=== PATIENT | male | born 1945 | race Caucasian/White ===

== ENCOUNTER 2020-06-13 13:51 | Outpatient (REF) | payer OTHER, SELFPAY ==
--- NOTE | 2020-06-13 13:53 | XR_ITS ---
EXAMINATION: BILATERAL KNEE X-RAY CLINICAL INFORMATION: Osteoarthritis of the left knee COMPARISON: Previous exams most recent February 2020 TECHNIQUE: AP standing view of both knees and lateral and sunrise view of the left knee FINDINGS: Left knee: No fracture or dislocation is seen. There is varus angulation. There is a severe arthritis at the medial femoral tibial and patellofemoral joints with joint space narrowing and osteophyte formation. There is an osteophyte at the quadriceps tendon insertion to the patella. There is a large joint effusion. Standing AP view of the right knee demonstrates a right knee replacement in satisfactory position. IMPRESSION: Severe left knee arthritis. Satisfactory appearance of right knee replacement.
== END 2020-06-13 13:52 | disposition home or self-care (01) ==
LOC: HO.XRAY 13:51
PROVIDERS: PCP Internal Medicine; Visit Provider Physician Assistant
DX: Z01.818 Encounter for other preprocedural examination (principal); M17.12 Unilateral primary osteoarthritis, left knee
CPT/HCPCS: 73560; 73565

== ENCOUNTER 2020-06-13 14:49 | Outpatient (REF) | payer OTHER, SELFPAY | END 2020-06-13 14:50 | disposition home or self-care (01) | LOC: HO.LAB 14:49 | PROVIDERS: PCP Internal Medicine; Visit Provider Orthopaedic Surgery | DX: Z01.810 Encounter for preprocedural cardiovascular examination (principal); M17.12 Unilateral primary osteoarthritis, left knee | CPT/HCPCS: 86850 ==

== ENCOUNTER 2020-06-17 15:03 | Inpatient (IN) | payer OTHER, SELFPAY ==
[2020-05-28 14:22] VITALS: BMI 34.2
--- NOTE | 2020-06-12 15:46 | P.CONAN_ITS ---
Documented by User: Anne Marie Tuckerney 06/12/20 15:51 HPI - Anesthesia Eval Consult details Narrative: 75yo M for L TKA S/P R TKA 10/2019 PCP cleared [facility] Past Medical History Medical History Anemia Arthritis Back pain Diabetes Elevated cholesterol HTN (hypertension) Sleep apnea Family History Family History Father Lung cancer Mother No problems noted. Surgical History Surgical History H/O colonoscopy History of dental surgery History of total right knee replacement Social History Social History Are you a primary ostomy care nurse to a significant other at home: No Do you presently have visiting nurse or other home services: No Smoking Status: Never smoker Second Hand Smoke Exposure: No Use of substances other than those prescribed or required for medical reasons: N Have you been hit, kicked, punched, or otherwise hurt by someone within the past year? If so, by whom?: No Advance Directives: No Advance Directives Information Provided: No Advance Directives on File: No Recently lost weight without trying: No Meds Allergies Allergy/AdvReac Type Severity Reaction Status Date / Time morphine [MORPHINE] Allergy Severe DROP IN Verified 06/13/20 14:02 BLOOD PRESSURE, ALMOST FAINTED Home Medications Medication Instructions Recorded Confirmed Type acetaminophen 650 mg PO Q6H PRN 05/28/20 06/09/20 History finasteride 5 mg PO DAILY 05/28/20 06/09/20 History losartan 100 mg PO DAILY 05/28/20 06/09/20 History metformin 1,000 mg PO BEDTIME 05/28/20 06/09/20 History metformin 500 mg PO DAILY 05/28/20 06/09/20 History rosuvastatin 20 mg PO BEDTIME 05/28/20 06/09/20 History tamsulosin 0.4 mg PO BEDTIME 05/28/20 06/09/20 History Exam Exam Date and Time: June 12, 2020 1546 Height,Weight and Vital Signs: Height 5 ft 11 in Weight 111.4 kg Pertinent Lab Results Pertinent Lab Results: Laboratory Tests 05/26/20 05/26/20 05/26/20 10:15 10:15 10:15 WBC 8.1 Hgb 14.8 Hct 43.7 Plt Count 315 Sodium 138 Potassium 5.0 Chloride 103 Bicarbonate 26 BUN 25 H Creatinine 1.08 Est GFR (Non-Af Amer) > 60 Hemoglobin A1c 6.5 Nasal Screen MRSA (PCR) Nasal S. aureus Screen Nasal MRSA/S.aureus Interp 05/26/20 10:24 WBC Hgb Hct Plt Count Sodium Potassium Chloride Bicarbonate BUN Creatinine Est GFR (Non-Af Amer) Hemoglobin A1c Nasal Screen MRSA (PCR) NEGATIVE Nasal S. aureus Screen NEGATIVE Nasal MRSA/S.aureus Interp SEE NOTE Assessment and Plan Assessment Anesthesia Assessment: Chart Reviewed Documented by User: Gurwinder Beach 06/17/20 07:16 [facility] Past Medical History Medical History Anemia Arthritis Back pain Diabetes Elevated cholesterol HTN (hypertension) Sleep apnea Family History Family History Father Lung cancer Mother No problems noted. Surgical History Surgical History H/O colonoscopy History of dental surgery History of total right knee replacement Social History Social History Are you a primary ostomy care nurse to a significant other at home: No Do you presently have visiting nurse or other home services: No Smoking Status: Never smoker Second Hand Smoke Exposure: No Use of substances other than those prescribed or required for medical reasons: N Have you been hit, kicked, punched, or otherwise hurt by someone within the past year? If so, by whom?: No Advance Directives: No Advance Directives Information Provided: No Advance Directives on File: No Recently lost weight without trying: No Meds Allergies Allergy/AdvReac Type Severity Reaction Status Date / Time morphine [MORPHINE] Allergy Severe DROP IN Verified 06/13/20 14:02 BLOOD PRESSURE, ALMOST FAINTED Home Medications Medication Instructions Recorded Confirmed Type acetaminophen 650 mg PO Q6H PRN 05/28/20 06/09/20 History finasteride 5 mg PO DAILY 05/28/20 06/09/20 History losartan 100 mg PO DAILY 05/28/20 06/09/20 History metformin 1,000 mg PO BEDTIME 05/28/20 06/09/20 History metformin 500 mg PO DAILY 05/28/20 06/09/20 History rosuvastatin 20 mg PO BEDTIME 05/28/20 06/09/20 History tamsulosin 0.4 mg PO BEDTIME 05/28/20 06/09/20 History Exam Airway Mallampati Class: II TM Dist: >3cm Neck ROM: Poor Loose/Missing/Broken Teeth: Yes Heart: RRR Other: chipped tooth
[2020-06-17] VITALS (18 sets, daily range): BP systolic 117–139; BP diastolic 61–73; PULSE 59–84; RESP 16–19; TEMP 36.1–36.5; O2SAT 95–98
--- NOTE | 2020-06-17 | XR_ITS ---
EXAMINATION: XR KNEE, LEFT CLINICAL INFORMATION: Left total knee arthroplasty COMPARISON: Radiographs left knee 06/13/2020 TECHNIQUE: AP and lateral views of the left knee. FINDINGS: Patient is status post total left knee arthroplasty. The hardware is in anatomic alignment and intact. There is no fracture or destructive process. There is gas in the suprapatellar bursa as expected along with overlying skin ambrose. IMPRESSION: Status post left total knee arthroplasty.
[2020-06-17] MEDS: Lactated Ringers 1,000 ML 100 ML IVCONT (06:37)
[2020-06-17] MEDS: ceFAZolin Sodium/Dextrose,Iso 2 GM/50 ML PIGGYBACK IV ×2 (06:38→19:31)
[2020-06-17] MEDS: Gabapentin 600 MG TABLET PO (06:40)
[2020-06-17 06:44] LABS: Glucose, Whole Blood 143 mg/dL (60-115)
[2020-06-17 06:49] LABS: SARS COV2 PCR INHOUSE NEGATIVE (Negative)
--- NOTE | 2020-06-17 07:13 | PC.NURSE ---
yosef block at 0718 vss [id number] pt tolerated well oxygen applied ls clear nad left side
--- NOTE | 2020-06-17 07:28 | MHC.SHP ---
Pre-Procedural Eval Section A The patient is an INPATIENT: No Changes since office visit: No Cold of Flu in the past 2 weeks, No New Medical Problems, No Changes in Medication and No Patient answered all questions The History & Physical has been completed within 30 days and I have reviewed it.: Yes Section B Chief Complaint: osteoarthritis left knee Allergies: Allergies Allergy/AdvReac Type Severity Reaction Status Date / Time morphine [MORPHINE] Allergy Severe DROP IN Verified 06/13/20 14:02 BLOOD PRESSURE, ALMOST FAINTED Plan Patient has been examined and remains a candidate for the planned procedure
[2020-06-17] MEDS: HYDROmorphone HCl 0.5 MG/0.5 ML SYRINGE 0.25 MG IVPUSH ×2 (10:16→10:26)
--- NOTE | 2020-06-17 10:34 | PM.OP ---
Brief Operative Note Date of procedure: 06/17/20 Pre-op diagnosis: Left knee OA Post-op diagnosis: same Procedure: Left TKA Implants: Tad triathlon 02/09/PS/35 a Surgeon: Zach Cabezas MD Anesthesia: GETA [employer] Section: Michell Martines Estimated blood loss (mL): 100 IV fluids (mL): 1,000 Pathology: other Condition: stable Disposition: PACU
--- NOTE | 2020-06-17 10:59 | OP_ITS ---
SURGEON: Zach Cabezas MD INDICATIONS: This is a 75-year-old gentleman with severe varus pattern osteoarthritis of the left knee. He had a perioperative 15-degree flexion contracture and was consented to undergo operative intervention. PREOPERATIVE DIAGNOSIS: Left knee osteoarthritis. POSTOPERATIVE DIAGNOSIS: Left knee osteoarthritis. PROCEDURE PERFORMED: Left total knee arthroplasty. ESTIMATED BLOOD LOSS: 100 mL. COMPLICATIONS: None known. ANESTHESIA: General. ASSISTANTS: ROB Gore. SPECIMENS: FLUIDS: 1 L. IMPLANTS: Tad Triathlon 6 femur, 7 tibia, 9 PS insert with a 35A patella. PROCEDURE IN DETAIL: The patient was brought to the operating room, placed supine on the operative table and prepped and draped in standard sterile fashion. Time-out was called to identify proper site, proper procedure, proper surgeon. IV antibiotics per weight was administered. I began by making a midline incision down to the retinaculum, performed a medial parapatellar arthrotomy. Fat pad resection and medial peel were performed and the patella was translated laterally. It was very tight knee. I used Johanna's line to drill my intramedullary femoral guide and took 12 mm off the distal femur given his severe flexion contracture. I then made my distal femur cut in 5 degrees of valgus and then sized a size 6 femur, made my anterior, posterior, and chamfer cuts. I then made my box cut and turned my attention to the tibia. I took 2 mm off the medial side in line with the tibial crest. This was a large lateral resection, but a minimal medial resection. Once I had removed all the excess debris, I placed extension block and still had approximately 5 to 10 degree flexion contracture. Therefore, I removed all instrumentation and took a distal 2 mm off the femur and recut my chamfer and box cut. I then re-trialed and it was less than 5 degrees and felt that was sufficient. Therefore, I drilled my femoral lug holes and prepared my tibial canal. Prior to this, I trialed with a 9 mm insert and I was happy with the extension and stability. Therefore, I removed all instrumentation, prepared my femur and tibia and press-fitting the femur and tibia in standard fashion. I then turned my attention to the patella. I removed approximately 10 mm from the undersurface of the patella. I then patella and was happy with the tracking. All in all, he had flexion contracture and was stable throughout the arc of motion. I then press-fit my patella in and put my final 9 mm polyethylene insert. Once this was done, I soaked for 3 minutes with iodine and TXA. I then performed a layered closure with ambrose on the skin. The patient was brought to recovery room in stable condition. There were no known complications. MD PAULA Quintana/SEBASTIÁN / [phone]
--- NOTE | 2020-06-17 11:26 | P.CONIM_ITS ---
History of Present Illness Data of Consult Service Date: 06/17/20 <Nicole Davison NP - Last Filed: 06/17/20 14:33> Requesting physician: Zach Cabezas <Nicole Davison NP - Last Filed: 06/17/20 14:33> Primary Care Provider: Marva Jurado MD <Nicole Davison NP - Last Filed: 06/17/20 14:33> HPI Reason for consult: Medical management <Nicole Davison NP - Last Filed: 06/17/20 14:33> 75 year old man with hx of HTN, HLD, and diabetes admitted by orthopedic surgery and is status post left knee arthroplasty. He denies nausea or vomiting. He has been able to drink fluids no problem. Labs are within normal limits, he has minimum amount of pain. He has no acute medical problems at this time. <Nicole Davison NP - Last Filed: 06/17/20 14:33> Review of Systems Review of Systems: Denies any recent fever chills or decrease in appetite respiratory denies any shortness of breath coverage production cardiovascular is adjustment of any PND or edema gastrointestinal denies any dysphagia abdominal pain nausea vomiting or diarrhea genitourinary denies any dysuria frequency or hematuria musculoskeletal post op left knee pain neuropsych denies any weakness or seizures all other systems reviewed are negative <Nicole Davison NP - Last Filed: 06/17/20 14:33> [facility] Medical History: Medical History Anemia Arthritis Back pain Diabetes Elevated cholesterol HTN (hypertension) Sleep apnea <Nicole Davison NP - Last Filed: 06/17/20 14:33> Family History: Family History Father Lung cancer Mother No problems noted. <Nicole Davison NP - Last Filed: 06/17/20 14:33> Surgical History: Surgical History H/O colonoscopy History of dental surgery History of total right knee replacement <Nicole Davison NP - Last Filed: 06/17/20 14:33> Social History: Social History Are you a primary customer care coordinator to a significant other at home: No Do you presently have visiting nurse or other home services: No Smoking Status: Never smoker Second Hand Smoke Exposure: No Use of substances other than those prescribed or required for medical reasons: N Currently Displaying Signs/Symptoms of Drug Intoxication Withdrawal: No Have you been hit, kicked, punched, or otherwise hurt by someone within the past year? If so, by whom?: No Advance Directives: No Advance Directives Information Provided: No Advance Directives on File: No Do you have thoughts of harming others: None Do you have a plan to hurt others: No Plan Recently lost weight without trying: No service: Yes Current occupational status: retired <Nicole Davison NP - Last Filed: 06/17/20 14:33> Meds Allergies/Adverse reactions: Allergies Allergy/AdvReac Type Severity Reaction Status Date / Time morphine [MORPHINE] AdvReac Severe DROP IN Verified 06/17/20 08:09 BLOOD PRESSURE, ALMOST FAINTED <Nicole Davison NP - Last Filed: 06/17/20 14:33> Home medications: Home Medications Medication Instructions Recorded Confirmed Type acetaminophen 650 mg PO Q6H PRN 05/28/20 06/09/20 History finasteride 5 mg PO DAILY 05/28/20 06/09/20 History losartan 100 mg PO DAILY 05/28/20 06/09/20 History metformin 1,000 mg PO BEDTIME 05/28/20 06/09/20 History metformin 500 mg PO DAILY 05/28/20 06/09/20 History rosuvastatin 20 mg PO BEDTIME 05/28/20 06/09/20 History tamsulosin 0.4 mg PO BEDTIME 05/28/20 06/09/20 History <Nicole Davison NP - Last Filed: 06/17/20 14:33> Physical Exam Vital Signs and Narrative: Vital Signs: Last Vital Signs Temp 97.4 F 06/17/20 11:20 Pulse 82 06/17/20 11:20 Resp 16 06/17/20 11:20 BP 122/68 06/17/20 11:05 Pulse Ox 96 06/17/20 11:20 Body Mass Index 34.2 <Nicole Davison NP - Last Filed: 06/17/20 14:33> Appearing in no acute distress head is normocephalic atraumatic eyes pupils are PERRLA sclera is anicteric mouth throat mucous membranes are intact and moist neck is supple no lymphadenopathy, no JVD noted lung sounds are clear to auscultation heart regular rate rhythm, clear S1, S2 positive bowel sounds, abdomen is soft, nontender neuro patient is alert x3, no focal deficits MSK Dry, clean dressing to left knee <Nicole Davison NP - Last Filed: 06/17/20 14:33> Results Labs Labs: Laboratory Tests 06/13/20 06/17/20 06/17/20 15:17 05:35 06:40 POC Glucose 143 H Coronavirus (PCR) NEGATIVE Blood Type B Negative Antibody Screen NEGATIVE <Nicole Davison NP - Last Filed: 06/17/20 14:33> Assessment and Plan (1) HTN (hypertension): Status: Acute <Nicole Davison NP - Last Filed: 06/17/20 14:33> (2) Elevated cholesterol: Status: Acute <Nicole Davison NP - Last Filed: 06/17/20 14:33> (3) Diabetes: Status: Acute <Nicole Davison NP - Last Filed: 06/17/20 14:33> 75 year old man status post left knee arthroplasty Left knee arthorplasty. Management as per surgical team, pain management Hypertension. Continue Losartan. Avoid hypotension. Diabetes. Sliding scale, ADA diet, Hold metformin for now. Hyperlipidemia. Continue statin. DVT prophylaxis as per surgeon. Discussed with Dr. Gustafson Full code <Nicole Davison NP - Last Filed: 06/17/20 14:33>
[2020-06-17 16:38] LABS: Glucose, Whole Blood 292 mg/dL (60-115)
[2020-06-17] MEDS: Acetaminophen 325 MG TABLET 650 MG PO (18:30)
[2020-06-17] MEDS: oxyCODONE HCl Immed Release 5 MG TABLET PO (19:32)
[2020-06-17] MEDS: Celecoxib 200 MG CAPSULE PO (20:56)
[2020-06-17] MEDS: Atorvastatin Calcium 80 MG TABLET PO (20:56)
[2020-06-17] MEDS: Tamsulosin HCL 0.4 MG CAPSULE PO (20:56)
[2020-06-17] MEDS: oxyCODONE HCl ER 10 MG TAB.ER.12H PO (20:59)
[2020-06-17 21:20] LABS: Glucose, Whole Blood 189 mg/dL (60-115)
[2020-06-17] MEDS: Insulin Lispro 100 UNIT/ML 3 ML VIAL SUBCUT (21:28)
[2020-06-17] MEDS: Sodium Chloride 0.45 % 1,000 ML 80 ML IVCONT (22:52)
[2020-06-18] VITALS (8 sets, daily range): BP systolic 112–144; BP diastolic 54–68; PULSE 56–93; RESP 18–19; TEMP 35.5–36.3; O2SAT 95–99
[2020-06-18 07:00] LABS: MANUAL DIFF FLAG NO
[2020-06-18 07:10] LABS: Basophils Percent Auto 0.1 % (0-2); Eosinophils Percent Auto 0.2 % (0-4); Hematocrit 34.3 % (42-52); Hemoglobin 11.5 g/dl (14.0-18.0); Imm Gran Abs Auto 0.04 X10*3/uL (0.00-0.03); Imm Gran Pct Auto 0.3 % (0.0-0.4); Lymphocytes Absolute Auto 1.4 X10*3/uL (1.2-4.9); Lymphocytes Percent Auto 11.4 % (20-40); Mean Corpuscular HGB Conc 33.5 g/dl (31.0-36.0); Mean Corpuscular Volume 86.4 fL (80-98); Monocytes Absolute Auto 1.4 X10*3/uL (0.1-1.2); Neutrophils Absolute Auto 9.5 X10*3/uL (2.0-8.3); Platelet Count 273 X10*3/uL (160-400); Red Blood Count 3.97 X10*6/uL (4.60-5.80); Red Cell Distribution Width 11.8 % (11.0-16.0); White Blood Count 12.3 X10*3/uL (4.8-10.8)
[2020-06-18] MEDS: Acetaminophen 325 MG TABLET 650 MG PO (07:18)
[2020-06-18 07:34] LABS: Anion Gap 12 (12-20); Blood Urea Nitrogen 33 mg/dL (9-16); Calcium 8.2 mg/dL (8.4-10.2); Carbon Dioxide 25 mmol/L (22-29); Chloride 103 mmol/L (96-108); Estimated Glomerular Filt Rate > 60; Glucose Fasting 154 mg/dL (60-99); Potassium 4.2 mmol/l (3.3-5.1); Sodium 136 mmol/L (135-145)
[2020-06-18 08:06] LABS: Glucose, Whole Blood 162 mg/dL (60-115)
[2020-06-18] MEDS: Aspirin 325 MG TABLET PO ×2 (08:23→20:52)
[2020-06-18] MEDS: Finasteride 5 MG TABLET PO (08:24)
[2020-06-18] MEDS: Celecoxib 200 MG CAPSULE PO ×2 (08:24→20:52)
[2020-06-18] MEDS: Losartan Potassium 50 MG TABLET 100 MG PO (08:24)
[2020-06-18] MEDS: oxyCODONE HCl ER 10 MG TAB.ER.12H PO ×2 (08:26→20:53)
[2020-06-18] MEDS: Sodium Chloride 0.45 % 1,000 ML 80 ML IVCONT ×2 (09:46→20:53)
--- NOTE | 2020-06-18 10:57 | P.PNIM_ITS ---
Subjective Subjective Date of Service: 06/18/20 Interval History: Seen in f/u for medical consult for med management for HTN, HLD, DM. Had left knee total arthroplasty 06/17/20. Doing well. Pain is reasonable well controlled. Tolerating ambulation. Review of Systems Card: no chest pain GI: No n/v Muscular/sk: minimal knee pain Physical Exam Vital Signs: Vital Signs: Vital Signs Temp Pulse Resp BP Pulse Ox 06/18/20 09:11 78 120/66 06/18/20 08:00 96.9 F 78 18 120/66 06/18/20 04:00 96.8 F 69 19 138/68 95 06/17/20 23:55 97.7 F 75 19 139/69 96 06/17/20 20:00 97.6 F 77 16 118/66 97 06/17/20 14:20 97 06/17/20 13:57 18 97 06/17/20 11:20 97.4 F 82 16 96 06/17/20 11:05 70 16 122/68 95 Appearing in no acute distress head is normocephalic atraumatic eyes pupils are PERRLA sclera is anicteric mouth throat mucous membranes are intact and moist neck is supple no lymphadenopathy, no JVD noted lung sounds are clear to auscultation heart regular rate rhythm, clear S1, S2 positive bowel sounds, abdomen is soft, nontender neuro patient is alert x3, no focal deficits MSK Dry, clean dressing to left knee Objective Data Current Medications Generic Name Dose Route Start Last Admin Trade Name Freq PRN Reason Stop Dose Admin Acetaminophen 650 mg 06/17/20 10:06 06/18/20 07:18 Acetaminophen 325 Mg Tablet PO 650 mg Q6H PRN Administration Pain, Mild (Pain Scale 1-3) Aspirin 325 mg 06/18/20 10:00 06/18/20 08:23 Aspirin 325 Mg Tablet PO 325 mg BID MARTA Administration Atorvastatin Calcium 80 mg 06/17/20 21:00 06/17/20 20:56 Atorvastatin Calcium 80 Mg Tablet PO 80 mg BEDTIME MARTA Administration Celecoxib 200 mg 06/17/20 21:00 06/18/20 08:24 Celecoxib 200 Mg Capsule PO 200 mg BID MARTA Administration Finasteride 5 mg 06/18/20 09:00 06/18/20 08:24 Finasteride 5 Mg Tablet PO 5 mg DAILY MARTA Administration Hydromorphone HCl 0.25 mg 06/17/20 10:06 Hydromorphone Hcl 0.5 Mg/0.5 Ml Syringe IVPUSH Q4H PRN Pain, Severe (Pain Scale 7-10) Sodium Chloride 1,000 mls @ 80 mls/hr 06/17/20 10:15 06/18/20 09:46 IVCONT 80 mls/hr .[id number] MARTA Administration Cefazolin Sodium/Dextrose 2 gm in 50 mls @ 100 mls/hr 06/17/20 19:00 06/17/20 20:16 Ancef IV Infused POSTOP MARTA Infusion Insulin Human Lispro 0 unit 06/17/20 16:30 06/18/20 08:24 Insulin Lispro 100 Unit/Ml 3 Ml Vial SUBCUT Not Given QIDACHS [facility] Protocol Losartan Potassium 100 mg 06/18/20 09:00 06/18/20 08:24 Losartan Potassium 50 Mg Tablet PO 100 mg DAILY MARTA Administration Naloxone HCl 0.2 mg 06/17/20 10:06 Naloxone Hcl 0.4 Mg/Ml Vial IVPUSH Q2M PRN Excessive sedation or RR < 8 Ondansetron HCl 4 mg 06/17/20 10:06 Ondansetron Hcl 4 Mg/2 Ml Vial IVPUSH Q8H PRN Nausea and Vomiting Oxycodone HCl 5 mg 06/17/20 10:06 06/17/20 19:32 Oxycodone Hcl Immed Release 5 Mg Tablet PO 5 mg Q4H PRN Administration Pain, Moderate (Pain Scale 4-6 Oxycodone HCl 10 mg 06/17/20 21:00 06/18/20 08:26 Oxycodone Hcl Er 10 Mg Tab.Er.12h PO 10 mg BID MARTA Administration Senna 17.2 mg 06/17/20 10:06 Sennosides 8.6 Mg Tablet PO BEDTIME PRN Constipation Sodium Chloride 3 ml 06/17/20 16:00 06/18/20 07:18 0.9 % Sodium Chloride Flush 3 Ml Syringe IVFLUSH Not Given QSHIFT [facility] Tamsulosin HCl 0.4 mg 06/17/20 21:00 06/17/20 20:56 Tamsulosin Hcl 0.4 Mg Capsule PO 0.4 mg BEDTIME MARTA Administration Labs CBC & Chem 7: 06/18/20 06:39 10/14/20 06:39 Assessment and Plan (1) HTN (hypertension): Status: Acute (2) Elevated cholesterol: Status: Acute (3) Diabetes: Status: Acute Assessment and Plan: 75 year old man with HTN, HLD, DM status post left knee arthroplasty on 06/17/20 Left knee arthroplasty. Doing -Post op management by surgery including pain, DVT prophylaxis, PT Hypertension. controlled -Continue Losartan. Avoid hypotension. Diabetes. Sliding scale, ADA diet. Ok to resume metformin Hyperlipidemia. Continue statin. DVT prophylaxis as per surgeon.
[2020-06-18 11:56] LABS: Glucose, Whole Blood 139 mg/dL (60-115)
--- NOTE | 2020-06-18 13:52 | HO.POSTANES ---
Post Anesthesia Evaluation Post Anesthesia Evaluation Vital Signs: Vital Signs Temp Pulse Resp BP Pulse Ox 06/18/20 13:17 59 112/54 L 99 06/18/20 11:43 95.9 F L 59 18 112/54 L 99 06/18/20 09:11 78 120/66 06/18/20 08:00 96.9 F 78 18 120/66 06/18/20 04:00 96.8 F 69 19 138/68 95 Anesthesia: General Mental Status: Awake Pain Control: Satisfactory Nausea/Vomiting: None Hydration: Adequate Anesthesia-Related Issues: No Anes. Related Issues
--- NOTE | 2020-06-18 14:00 | MHC.CM.PN ---
nurse foster care case manager note electronic medical record reviewed along with case discussed with staff nurse , met with patient explained the role of the nurse foster care case manager in the transition from hospitla to home , patient reported he lives with his from previous surgeries he haS :WHEELED WALKER, CAne , shower grab bars and high toilet seat.) HE IS INDEPENDENT IN HIS ADLS AND MOBILITY AND AT TIMES USES THE CANE OR WALKER WHEN NEEDED. HE PLAN ON GOING HOME / WITH HOME PHYSICAL THEAPRY AFTER REVIEW OF THE AGENCY LIST HE CHOOSE THE [facility] FOR HOME PHYSICAL THEPAY AND THEN WHEN THEY HAVE DISCHARGED HIM HE WOULD LIKE TO CGO TO THE [facility]SP[facility]ATION [facility] FOR HOME PHYSICAL THEAP[facility] OUTPATIENT FOLLOW UP PCP AND [facility] MAKE APPOINTMENTS TRANSPORTATION FAMILY MEDICARE IM XPLAINED
[2020-06-18] MEDS: oxyCODONE HCl Immed Release 5 MG TABLET PO (16:35)
[2020-06-18 16:40] LABS: Glucose, Whole Blood 130 mg/dL (60-115)
[2020-06-18] MEDS: Atorvastatin Calcium 80 MG TABLET PO (20:52)
[2020-06-18] MEDS: Tamsulosin HCL 0.4 MG CAPSULE PO (20:53)
[2020-06-18 20:59] LABS: Glucose, Whole Blood 144 mg/dL (60-115)
--- NOTE | 2020-06-18 20:59 | P.PNOP_ITS ---
Subjective Subjective Interval history: POD 1 s/p LT TKA He states he did well over night, pain is improving with Oxycodone. He has been out of bed ambulating without difficulty. Physical Exam Vital Signs: Vital Signs: Vital Signs Temp Pulse Resp BP Pulse Ox 06/18/20 19:29 97.3 F 93 121/58 L 97 06/18/20 15:21 96.5 F L 66 18 119/59 L 99 06/18/20 13:17 59 112/54 L 99 06/18/20 11:43 95.9 F L 59 18 112/54 L 99 06/18/20 09:11 78 120/66 06/18/20 08:00 96.9 F 78 18 120/66 06/18/20 04:00 96.8 F 69 19 138/68 95 06/17/20 23:55 97.7 F 75 19 139/69 96 Body Mass Index 34.2 Const: General: cooperative, healthy appearing and no acute distress Resp: Effort & Inspection: normal respiratory effort and able to speak in complete sentences Cardio: Rate: regular rate Peripheral pulses: Peripheral pulses 2+ throughout GI: Inspection: Yes normal to inspection Palpation (GI): Soft to palpation Skin: General skin exam: no rashes or lesions noted Extrem: Other: Left knee dressing intact, no drainage. No erythema, mild edema, ROM 5-95. Calf supple non tender Progress Note: A&P Assessment and plan (1) Status post left knee replacement: Status: Acute Assessment and Plan: Cont pain mgmnt begin PT for LT TKA begin asa for dvt ppx dispo planning-Pt eval and pain mgmnt Fall Risk Details Current Medications: Current Medications Generic Name Dose Route Start Last Admin Trade Name Freq PRN Reason Stop Dose Admin Acetaminophen 650 mg 06/17/20 10:06 06/18/20 07:18 Acetaminophen 325 Mg Tablet PO 650 mg Q6H PRN Administration Pain, Mild (Pain Scale 1-3) Aspirin 325 mg 06/18/20 10:00 06/18/20 20:52 Aspirin 325 Mg Tablet PO 325 mg BID MARTA Administration Atorvastatin Calcium 80 mg 06/17/20 21:00 06/18/20 20:52 Atorvastatin Calcium 80 Mg Tablet PO 80 mg BEDTIME MARTA Administration Celecoxib 200 mg 06/17/20 21:00 06/18/20 20:52 Celecoxib 200 Mg Capsule PO 200 mg BID MARTA Administration Finasteride 5 mg 06/18/20 09:00 06/18/20 08:24 Finasteride 5 Mg Tablet PO 5 mg DAILY MARTA Administration Hydromorphone HCl 0.25 mg 06/17/20 10:06 Hydromorphone Hcl 0.5 Mg/0.5 Ml Syringe IVPUSH Q4H PRN Pain, Severe (Pain Scale 7-10) Sodium Chloride 1,000 mls @ 80 mls/hr 06/17/20 10:15 06/18/20 20:53 IVCONT 80 mls/hr .[id number] MARTA Administration Cefazolin Sodium/Dextrose 2 gm in 50 mls @ 100 mls/hr 06/17/20 19:00 06/17/20 20:16 Ancef IV Infused POSTOP MARTA Infusion Insulin Human Lispro 0 unit 06/17/20 16:30 06/18/20 20:55 Insulin Lispro 100 Unit/Ml 3 Ml Vial SUBCUT Not Given QIDACHS [facility] Protocol Losartan Potassium 100 mg 06/18/20 09:00 06/18/20 08:24 Losartan Potassium 50 Mg Tablet PO 100 mg DAILY [facility] Administration Naloxone HCl 0.2 mg 06/17/20 10:06 Naloxone Hcl 0.4 Mg/Ml Vial IVPUSH Q2M PRN Excessive sedation or RR < 8 Ondansetron HCl 4 mg 06/17/20 10:06 Ondansetron Hcl 4 Mg/2 Ml Vial IVPUSH Q8H PRN Nausea and Vomiting Oxycodone HCl 5 mg 06/17/20 10:06 06/18/20 16:35 Oxycodone Hcl Immed Release 5 Mg Tablet PO 5 mg Q4H PRN Administration Pain, Moderate (Pain Scale 4-6 Oxycodone HCl 10 mg 06/17/20 21:00 06/18/20 20:53 Oxycodone Hcl Er 10 Mg Tab.Er.12h PO 10 mg BID [facility] Administration Senna 17.2 mg 06/17/20 10:06 Sennosides 8.6 Mg Tablet PO BEDTIME PRN Constipation Sodium Chloride 3 ml 06/17/20 16:00 06/18/20 16:32 0.9 % Sodium Chloride Flush 3 Ml Syringe IVFLUSH Not Given QSHIFT [facility] Tamsulosin HCl 0.4 mg 06/17/20 21:00 06/18/20 20:53 Tamsulosin Hcl 0.4 Mg Capsule PO 0.4 mg BEDTIME MARTA Administration Time Spent With Patient Time: Total time spent is greater than 50% in coordination of care (as documented) at patient's floor/unit and/or counseling patient: Time with patient: 15 - 24 minutes
[2020-06-19 03:42] VITALS: BP 150/67; PULSE 74; RESP 18; TEMP 36.2; O2SAT 94
[2020-06-19] MEDS: oxyCODONE HCl Immed Release 5 MG TABLET PO ×2 (06:03→10:50)
[2020-06-19 06:33] LABS: MANUAL DIFF FLAG NO
[2020-06-19 06:53] LABS: Basophils Percent Auto 0.4 % (0-2); Eosinophils Absolute Auto 0.2 X10*3/uL (0.0-0.4); Eosinophils Percent Auto 1.9 % (0-4); Hematocrit 29.7 % (42-52); Hemoglobin 10.1 g/dl (14.0-18.0); Imm Gran Abs Auto 0.03 X10*3/uL (0.00-0.03); Imm Gran Pct Auto 0.3 % (0.0-0.4); Lymphocytes Absolute Auto 1.5 X10*3/uL (1.2-4.9); Lymphocytes Percent Auto 16.3 % (20-40); Mean Corpuscular Hemoglobin 29.4 pg (27.0-33.0); Mean Corpuscular Volume 86.3 fL (80-98); Mean Platelet Volume 9.3 fL (9.4-12.4); Monocytes Absolute Auto 1.2 X10*3/uL (0.1-1.2); Monocytes Percent Auto 12.6 % (2-11); Neutrophils Absolute Auto 6.3 X10*3/uL (2.0-8.3); Neutrophils Percent Auto 68.5 % (45-73); Platelet Count 227 X10*3/uL (160-400); Red Blood Count 3.44 X10*6/uL (4.60-5.80); Red Cell Distribution Width 11.9 % (11.0-16.0); White Blood Count 9.1 X10*3/uL (4.8-10.8)
[2020-06-19 07:05] LABS: Anion Gap 11 (12-20); Blood Urea Nitrogen 33 mg/dL (9-16); Calcium 8.1 mg/dL (8.4-10.2); Carbon Dioxide 25 mmol/L (22-29); Chloride 104 mmol/L (96-108); Estimated Glomerular Filt Rate > 60; Glucose Fasting 123 mg/dL (60-99); Potassium 4.1 mmol/l (3.3-5.1); Sodium 136 mmol/L (135-145)
[2020-06-19 07:42] VITALS: BP 139/64; PULSE 84; RESP 17; TEMP 36.2; O2SAT 96
[2020-06-19 07:49] LABS: Glucose, Whole Blood 153 mg/dL (60-115)
[2020-06-19 08:48] VITALS: BP 139/64; PULSE 84; O2SAT 96
--- NOTE | 2020-06-19 08:54 | P.PNIM_ITS ---
Subjective Subjective Date of Service: 06/19/20 Interval History: Seen in f/u for medical consult for med management for HTN, HLD, DM. Had left knee total arthroplasty 06/17/20. Doing well. He has a bit more pain today. Doing well with ambulation Review of Systems Knee pain, no other complaint Physical Exam Vital Signs: Vital Signs: Vital Signs Temp Pulse Resp BP Pulse Ox 06/19/20 08:48 84 139/64 96 06/19/20 07:42 97.2 F 84 17 139/64 96 06/19/20 03:42 97.2 F 74 18 150/67 H 94 06/18/20 23:52 97 F 56 18 144/57 H 95 06/18/20 19:29 97.3 F 93 121/58 L 97 06/18/20 15:21 96.5 F L 66 18 119/59 L 99 06/18/20 13:17 59 112/54 L 99 06/18/20 11:43 95.9 F L 59 18 112/54 L 99 06/18/20 09:11 78 120/66 Body Mass Index 34.2 Appearing in no acute distress head is normocephalic atraumatic eyes pupils are PERRLA sclera is anicteric mouth throat mucous membranes are intact and moist neck is supple no lymphadenopathy, no JVD noted lung sounds are clear to auscultation heart regular rate rhythm, clear S1, S2 positive bowel sounds, abdomen is soft, nontender neuro patient is alert x3, no focal deficits MSK Dry, clean dressing to left knee Objective Data Current Medications Generic Name Dose Route Start Last Admin Trade Name Roxana PRN Reason Stop Dose Admin Acetaminophen 650 mg 06/17/20 10:06 06/18/20 07:18 Acetaminophen 325 Mg Tablet PO 650 mg Q6H PRN Administration Pain, Mild (Pain Scale 1-3) Aspirin 325 mg 06/18/20 10:00 06/18/20 20:52 Aspirin 325 Mg Tablet PO 325 mg BID MARTA Administration Atorvastatin Calcium 80 mg 06/17/20 21:00 06/18/20 20:52 Atorvastatin Calcium 80 Mg Tablet PO 80 mg BEDTIME MARTA Administration Celecoxib 200 mg 06/17/20 21:00 06/18/20 20:52 Celecoxib 200 Mg Capsule PO 200 mg BID MARTA Administration Finasteride 5 mg 06/18/20 09:00 06/18/20 08:24 Finasteride 5 Mg Tablet PO 5 mg DAILY MARTA Administration Hydromorphone HCl 0.25 mg 06/17/20 10:06 Hydromorphone Hcl 0.5 Mg/0.5 Ml Syringe IVPUSH Q4H PRN Pain, Severe (Pain Scale 7-10) Sodium Chloride 1,000 mls @ 80 mls/hr 06/17/20 10:15 06/18/20 20:53 IVCONT 80 mls/hr .[id number] MARTA Administration Cefazolin Sodium/Dextrose 2 gm in 50 mls @ 100 mls/hr 06/17/20 19:00 06/17/20 20:16 Ancef IV Infused POSTOP MARTA Infusion Insulin Human Lispro 0 unit 06/17/20 16:30 06/18/20 20:55 Insulin Lispro 100 Unit/Ml 3 Ml Vial SUBCUT Not Given QIDACHS [facility] Protocol Losartan Potassium 100 mg 06/18/20 09:00 06/18/20 08:24 Losartan Potassium 50 Mg Tablet PO 100 mg DAILY [facility] Administration Naloxone HCl 0.2 mg 06/17/20 10:06 Naloxone Hcl 0.4 Mg/Ml Vial IVPUSH Q2M PRN Excessive sedation or RR < 8 Ondansetron HCl 4 mg 06/17/20 10:06 Ondansetron Hcl 4 Mg/2 Ml Vial IVPUSH Q8H PRN Nausea and Vomiting Oxycodone HCl 5 mg 06/17/20 10:06 06/19/20 06:03 Oxycodone Hcl Immed Release 5 Mg Tablet PO 5 mg Q4H PRN Administration Pain, Moderate (Pain Scale 4-6 Oxycodone HCl 10 mg 06/17/20 21:00 06/18/20 20:53 Oxycodone Hcl Er 10 Mg Tab.Er.12h PO 10 mg BID [facility] Administration Senna 17.2 mg 06/17/20 10:06 Sennosides 8.6 Mg Tablet PO BEDTIME PRN Constipation Sodium Chloride 3 ml 06/17/20 16:00 06/19/20 00:24 0.9 % Sodium Chloride Flush 3 Ml Syringe IVFLUSH Not Given QSHIFT [facility] Tamsulosin HCl 0.4 mg 06/17/20 21:00 06/18/20 20:53 Tamsulosin Hcl 0.4 Mg Capsule PO 0.4 mg BEDTIME MARTA Administration Labs CBC & Chem 7: 06/19/20 06:07 06/19/20 06:07 Assessment and Plan (1) HTN (hypertension): Status: Acute (2) Elevated cholesterol: Status: Acute (3) Diabetes: Status: Acute Assessment and Plan: 75 year old man with HTN, HLD, DM status post left knee arthroplasty on 06/17/20 Left knee arthroplasty. Doing -Post op management by surgery including pain, DVT prophylaxis, PT Hypertension. controlled -Continue Losartan. Diabetes. Sliding scale, ADA diet. Ok to resume metformin Hyperlipidemia. Continue statin. DVT prophylaxis as per surgeon. Medically ok to discharge and to resume home meds
[2020-06-19] MEDS: Aspirin 325 MG TABLET PO (09:02)
[2020-06-19] MEDS: Finasteride 5 MG TABLET PO (09:02)
[2020-06-19] MEDS: Celecoxib 200 MG CAPSULE PO (09:03)
[2020-06-19] MEDS: Losartan Potassium 50 MG TABLET 100 MG PO (09:03)
[2020-06-19] MEDS: Insulin Lispro 100 UNIT/ML 3 ML VIAL SUBCUT (09:06)
--- NOTE | 2020-06-19 09:27 | PM.DS ---
DS: Providers Provider Date of admission: 06/17/20 15:03 Primary care physician: Marva Jurado MD Consults: 06/17/20 10:06 Consult to Hospitalist Routine Consulting Provider: Hospitalist Reason for consultation: Medical management DS: Diagnosis Discharge Diagnosis (1) HTN (hypertension): Status: Acute (2) Elevated cholesterol: Status: Acute (3) Diabetes: Status: Acute (4) Status post left knee replacement: Status: Acute Problem details: Mr Tran is a 75-year-old gentleman who presented to our office with ongoing left knee pain. He was found to have osteoarthritis of the left knee. He continued to have difficulty with ambulation and daily activities and after failing all conservative measures he agreed to have surgical intervention, left TKA. DS: Summary Hospital Course Hospital Course: Mr Tran Underwent a successful left total knee arthroplasty. He was transferred to PACU and then to the floor her covered. During his stay his vitals were stable afebrile 97.2. H&H unremarkable hemoglobin 10.1 and hematocrit 29.7. Postop day 1 he was started on aspirin 325 mg for DVT prophylaxis and he received physical therapy services twice a day. Prior to discharge his Aquacel dressing was changed incision clean dry and intact new Aquacel dressing applied and the plan is to be discharged home with VNA services. Time spent discussing smoking cessation with patient: more than 10 minutes Status at Discharge Functional status at discharge: uses cane/walker Time Spent with Patient Time attestation: Total time spent providing and/or coordinating discharge services: Physical Exam Vital Signs: Vital Signs: Vital Signs Temp Pulse Resp BP Pulse Ox 06/19/20 08:48 84 139/64 96 06/19/20 07:42 97.2 F 84 17 139/64 96 06/19/20 03:42 97.2 F 74 18 150/67 H 94 06/18/20 23:52 97 F 56 18 144/57 H 95 06/18/20 19:29 97.3 F 93 121/58 L 97 06/18/20 15:21 96.5 F L 66 18 119/59 L 99 06/18/20 13:17 59 112/54 L 99 06/18/20 11:43 95.9 F L 59 18 112/54 L 99 Body Mass Index 34.2 Extrem: Other: Left knee incision clean dry and intact. [place] intact. No erythema. Mild edema. Calf supple nontender. Pulses present. DS: Data Data Completed and Pending Completed studies during hospitalization [Text1]: Pending at discharge 06/17/20 09:38 Surgical [PTH] Routine Labs on day of discharge: Labs from last 24 hours 06/19/20 06/19/20 06/19/20 07:42 06:07 06:07 WBC 9.1 RBC 3.44 L Hgb 10.1 L Hct 29.7 L MCV 86.3 MCH 29.4 MCHC 34.0 RDW 11.9 Plt Count 227 MPV 9.3 L Immature Gran % (Auto) 0.3 Neut % (Auto) 68.5 Lymph % (Auto) 16.3 L [place] % (Auto) 12.6 H Eos % (Auto) 1.9 Baso % (Auto) 0.4 Lymph # (Auto) 1.5 [place] # (Auto) 1.2 Eos # (Auto) 0.2 Baso # (Auto) 0.0 Abs Immat Gran (auto) 0.03 Absolute Neuts (auto) 6.3 Absolute Nucleated RBC 0.000 Nucleated RBC % (auto) 0.0 Sodium 136 Potassium 4.1 Chloride 104 Carbon Dioxide 25 Anion Gap 11 L BUN 33 H Creatinine 0.92 Estim Creat Clear Calc 88.0 Estimated GFR > 60 POC Glucose 153 H Fasting Glucose 123 H Calcium 8.1 L 06/18/20 06/18/20 06/18/20 20:55 16:37 11:42 WBC RBC Hgb Hct MCV MCH MCHC RDW Plt Count MPV Immature Gran % (Auto) Neut % (Auto) Lymph % (Auto) [place] % (Auto) Eos % (Auto) Baso % (Auto) Lymph # (Auto) [place] # (Auto) Eos # (Auto) Baso # (Auto) Abs Immat Gran (auto) Absolute Neuts (auto) Absolute Nucleated RBC Nucleated RBC % (auto) Sodium Potassium Chloride Carbon Dioxide Anion Gap BUN Creatinine Estim Creat Clear Calc Estimated GFR POC Glucose 144 H 130 H 139 H Fasting Glucose Calcium Discharge Plan Discharge Patient Disposition: Home Health Service Referrals: Michell Martines PA-C [Physician Assistant Printer Floor Covering] - (Follow up with Orthopedics in 2 weeks. ) Discharge Medications: New celecoxib 200 mg Capsule 200 mg PO BID 30 Days Qty: 60 RF: 1 sennosides [Senna Lax] 8.6 mg Tablet 17.2 mg PO BEDTIME PRN (Reason: Constipation) 30 Days RF: 0 acetaminophen 325 mg Tablet 650 mg PO Q6H PRN (Reason: Pain, Mild (Pain Scale 1-3)) 30 Days Qty: 240 RF: 0 aspirin 325 mg Tablet 325 mg PO BID 14 Days Qty: 28 RF: 0 oxycodone 5 mg Tablet 5 mg PO Q4H PRN (Reason: Pain, Moderate (Pain Scale 4-6) 7 Days Qty: 42 RF: 0 Continued metformin 500 mg Tablet 500 mg PO DAILY RF: 0 tamsulosin 0.4 mg Capsule 0.4 mg PO BEDTIME RF: 0 metformin 1,000 mg Tablet 1,000 mg PO BEDTIME RF: 0 losartan 100 mg Tablet 100 mg PO DAILY RF: 0 finasteride 5 mg Tablet 5 mg PO DAILY RF: 0 rosuvastatin 20 mg Tablet 20 mg PO BEDTIME RF: 0 Discontinued acetaminophen 325 mg Tablet 650 mg PO Q6H PRN (Reason: Pain) RF: 0 Discharge Orders: Discharge Order (Routine); Ordered 06/19/20 Ordered By: Michell Martines Diet: regular diet Activity on Discharge: Use cane or walker Activity Restrictions/Additional Instructions: Physical Therapy for ROM 0-120, quad strength, gait training . Use walker for ambulation Limit stair climbing, No shower, No tub bath, No driving Continue anticoagulant Keep Aquacel dressing clean, dry and intact. Follow up with orthopedics in 2 weeks Visit Report Forms: Patient Portal Discharge page Care Plan Goals: Restore function of left knee Health Concerns: None Plan of Treatment: Physical Therapy Pain management DVT prophylaxis
--- NOTE | 2020-06-19 10:19 | MHC.CM.PN ---
nurse clinical care leader note discharge plan home with his with new referral to the [facility] for home physical thearpy to start the day after discharge. patient instructed to call his pcp for post hospital discharge follow up as well as the orthpedic surgeon , he is interested t go t the [facility] core outpatient rehab on [facility] when he has been discharged from the vna, updated the [facility] of the discharge today confirming they will be out tomorrow transaportation family
[2020-06-19] MEDS: oxyCODONE HCl ER 10 MG TAB.ER.12H PO (11:18)
--- NOTE | 2020-06-19 15:51 | PC.NURSE ---
1050 Oxycodone 10mg given. oxycodone 5 mg ordered prn. Guzman RIVAS notified. attempted to call pt x3, unable to reach. No answer.
== END 2020-06-19 12:28 | disposition home health service (06) | DRG 302 ==
LOC: HO.SSS 15:03 → HO.S3 15:03
PROVIDERS: Physician Assistant; Admitting Provider Orthopaedic Surgery; PCP Internal Medicine; Visit Provider Orthopaedic Surgery
PROC: 0SRD0JA Replacement of Left Knee Joint with Synthetic Substitute, Uncemented, Open Approach (ICD-10-PCS; CPT 27447; principal; 2020-06-17 07:30)
DX: M17.12 Unilateral primary osteoarthritis, left knee (principal); E11.9 Type 2 diabetes mellitus without complications; I10 Essential (primary) hypertension; E78.00 Pure hypercholesterolemia, unspecified; G47.30 Sleep apnea, unspecified; Z96.651 Presence of right artificial knee joint; Z20.828 Contact with and (suspected) exposure to other viral communicable diseases; Z88.5 Allergy status to narcotic agent; Z79.1 Long term (current) use of non-steroidal anti-inflammatories (NSAID); Z79.84 Long term (current) use of oral hypoglycemic drugs; Z79.899 Other long term (current) drug therapy
CPT/HCPCS: 36415; 73560; 80048; 82947; 85025; 86850; 86900; 86901; 87635; 88305; 88311; 97110; 97116; 97162; C1776; J0131; J0690; J1100; J1170; J1885; J2250; J2405; J3010

== ENCOUNTER → 2020-06-23 12:44 | Outpatient (BNVA) | payer OTHER, SELFPAY | PROVIDERS: Visit Provider Physician Assistant | DX: Z76.89 Persons encountering health services in other specified circumstances (principal) ==

== ENCOUNTER 2020-09-11 07:21 | Outpatient (REF) | payer OTHER, SELFPAY ==
[2020-09-11 11:36] LABS: Estimated Average Glucose 137 mg/dL; Hemoglobin A1c % 6.4 %
[2020-09-11 11:42] LABS: Alanine Aminotransferase 22 U/L (0-40); Albumin Level 4.5 g/dL (3.5-5.0); Alkaline Phosphatase 92 U/L (39-117); Anion Gap 14 (12-20); Aspartate Amino Transferase 20 U/L (5-37); Bilirubin Total 0.7 mg/dL (0.0-1.0); Blood Urea Nitrogen 25 mg/dL (9-16); Calcium 9.5 mg/dL (8.4-10.2); Carbon Dioxide 25 mmol/L (22-29); Chloride 104 mmol/L (96-108); Cholesterol 151 mg/dL; Estimated Glomerular Filt Rate > 60; Glucose Fasting 121 mg/dL (60-99); HDL Cholesterol 44 mg/dL; LDL Cholesterol Calculated 65 mg/dl; Potassium 4.2 mmol/l (3.3-5.1); Sodium 139 mmol/L (135-145); Total Protein 7.9 g/dL (6.5-8.0); Triglycerides 211 mg/dL
[2020-09-11 11:55] LABS: Creatinine Urine 69.32 mg/dL
== END 2020-09-11 07:22 | disposition home or self-care (01) ==
LOC: HO.HMGCLDS 07:21
PROVIDERS: PCP Internal Medicine; Visit Provider Internal Medicine
DX: E11.9 Type 2 diabetes mellitus without complications (principal); I10 Essential (primary) hypertension; E78.00 Pure hypercholesterolemia, unspecified; Z96.653 Presence of artificial knee joint, bilateral
CPT/HCPCS: 36415; 80053; 80061; 82043; 83036

== ENCOUNTER → 2020-09-17 09:57 | Outpatient (BNVA) | payer OTHER, SELFPAY | PROVIDERS: PCP Internal Medicine; Visit Provider Urology | DX: Z76.89 Persons encountering health services in other specified circumstances (principal) ==

== ENCOUNTER 2020-09-25 13:00 | Outpatient (RCR) | payer OTHER, SELFPAY ==
--- NOTE | 2020-07-29 09:20 | MHC.PT.EP ---
[facility] [place] Office [place] Office [place] Office [address] Maryann Willson [address] [phone] F: [phone] F: [phone] F: [phone] F: [phone] Physical Therapy Plan of Care Date of Evaluation: 07/29/20 Date of Surgery: 06/17/2020 Diagnosis: This is a 75 yo male presenting to skilled PT with a script for presence of L artificial knee joint. Assessment: This is a 75 yo male presenting to skilled PT with a script for presence of L artificial knee joint. This patient has been to our clinic in the past for the R total knee (had to finish rehab at home due to clinic closing from [facility]) and now has returned s/p his L by surgeon Dr. Cabezas. He did develop a blister along the inferior aspect of the incision. MD note reporting unroofing and drainage but has moderate diffuse swelling along the lower extremity, calf (improved and healed at eval). He was in the hospital for 2 days and then had VNA until last week (reports 117 degs at the last session). He is using a straight cane currently but does ambulate without it. He does not have a return date to ortho. Assessment reveals s/s of TKR on the L including pain averaging to about 2/10 at the worst, decreased ROM, decreased strength, balance, functional tolerance and pain management. He has impaired scar and patella mobility. Additionally, his R knee does not appear to have healed completely from last replacement mainly lacking in full extension and demonstrating contracture. He is limited in walking and stairs. He is a good candidate for skilled PT based on age, functional limitations and PT POC. Frequency and Duration: The patient will be seen 2x/wk for 6wks Short Term Goals: 1) AROM 115 2) AAROM flexion 120 3) Negotiate 6 inch step with good dynamic balance without UE support 4) AROM knee ext 0. 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 2) Negotiate reciprocal stair pattern on flight of stairs. 3) Resume grocery shopping MOD I. 4) I HEP. 5) Strength R knee 5/5. Treatment Plan: Modalities to reduce pain, spasms and effusion. Manual therapy to restore motion and function. Therapeutic exercise to improve strength and flexibility. Neuromuscular re-education for posture and balance. Therapeutic activities to return to functional activities of daily living. Please sign and return to therapist. Thank you for your referral.
--- NOTE | 2020-09-26 09:38 | MHC.PT.DC ---
[facility] [place] Office [place] Office [place] Office [address] [phone] F: [phone] F: [phone] F: [phone] F: [phone] Physical Therapy Discharge Report Diagnosis: This is a 75 yo male presenting to skilled PT with a script for presence of L artificial knee joint. Date of Surgery: 06/17/2020 Date of Evaluation: 07/29/20 Date of Discharge: 09/26/20 Treatments to Date: 16 Cancellations to Date: 0 No Shows to Date: 0 Discharge Status: Achieved Goals Improved Function Independent with HEP Discharge Summary: Pt progressed well with ROM and strength, stairs and balance. He demos normal gait pattern, is I in his HEP and has had 16 visits with PT. At this time he has returned to OF and can continue on own at home. He has very little pain and excellent ROM. DC to HEP Electronically signed by: Nellie Snider, PT Please sign and return to therapist. Thank you for your referral.
== END 2020-09-26 09:39 | disposition home or self-care (01) ==
LOC: HO.PTCHIC 13:00
PROVIDERS: PCP Internal Medicine; Visit Provider Physician Assistant
DX: Z47.1 Aftercare following joint replacement surgery (principal); Z96.652 Presence of left artificial knee joint
CPT/HCPCS: 97110; 97162; 97530

== ENCOUNTER 2020-12-15 06:31 | Outpatient (REF) | payer MEDICARE, SELFPAY ==
[2020-12-15 12:00] LABS: Alanine Aminotransferase 16 U/L (0-40); Albumin Level 4.3 g/dL (3.5-5.0); Alkaline Phosphatase 82 U/L (39-117); Anion Gap 15 (12-20); Aspartate Amino Transferase 17 U/L (5-37); Bilirubin Total 0.9 mg/dL (0.0-1.0); Blood Urea Nitrogen 22 mg/dL (9-16); Calcium 9.5 mg/dL (8.4-10.2); Carbon Dioxide 23 mmol/L (22-29); Chloride 107 mmol/L (96-108); Cholesterol 139 mg/dL; Estimated Glomerular Filt Rate > 60; Glucose Fasting 119 mg/dL (60-99); HDL Cholesterol 40 mg/dL; LDL Cholesterol Calculated 66 mg/dl; Potassium 4.5 mmol/L (3.3-5.1); Sodium 140 mmol/L (135-145); Total Protein 7.6 g/dL (6.5-8.0); Triglycerides 169 mg/dL
[2020-12-15 12:14] LABS: Estimated Average Glucose 154 mg/dL
== END 2020-12-15 06:32 | disposition home or self-care (01) ==
LOC: HO.HMGCLDS 06:31
PROVIDERS: PCP Internal Medicine; Visit Provider Internal Medicine
DX: E11.9 Type 2 diabetes mellitus without complications (principal); E78.00 Pure hypercholesterolemia, unspecified
CPT/HCPCS: 36415; 80053; 80061; 83036

== ENCOUNTER 2021-03-17 06:32 | Outpatient (REF) | payer MEDICARE, SELFPAY ==
[2021-03-17 11:43] LABS: Estimated Average Glucose 148 mg/dL; Hemoglobin A1c % 6.8 %
[2021-03-17 12:01] LABS: Creatinine Urine 104.13 mg/dL; Microalbum/Creatinine Ratio Ur 32.6 ug/mg cr
[2021-03-17 12:14] LABS: Prostate Specific Antigen 0.96 ng/mL (<0.05-4.0)
[2021-03-17 12:15] LABS: Alanine Aminotransferase 15 U/L (0-40); Albumin Level 4.2 g/dL (3.5-5.0); Alkaline Phosphatase 91 U/L (39-117); Anion Gap 15 (12-20); Aspartate Amino Transferase 16 U/L (5-37); Bilirubin Total 0.8 mg/dL (0.0-1.0); Blood Urea Nitrogen 21 mg/dL (9-16); Calcium 9.5 mg/dL (8.4-10.2); Carbon Dioxide 22 mmol/L (22-29); Chloride 107 mmol/L (96-108); Cholesterol 151 mg/dL; Estimated Glomerular Filt Rate > 60; Glucose Fasting 118 mg/dL (60-99); HDL Cholesterol 45 mg/dL; LDL Cholesterol Calculated 60 mg/dl; Potassium 4.4 mmol/L (3.3-5.1); Sodium 140 mmol/L (135-145); Total Protein 7.6 g/dL (6.5-8.0); Triglycerides 230 mg/dL
== END 2021-03-17 06:33 | disposition home or self-care (01) ==
LOC: HO.HMGCLDS 06:32
PROVIDERS: PCP Internal Medicine; Visit Provider Urology
DX: Z12.5 Encounter for screening for malignant neoplasm of prostate (principal); N13.8 Other obstructive and reflux uropathy; N40.1 Benign prostatic hyperplasia with lower urinary tract symptoms; E11.9 Type 2 diabetes mellitus without complications; E78.00 Pure hypercholesterolemia, unspecified; I10 Essential (primary) hypertension
CPT/HCPCS: 36415; 80053; 80061; 82043; 83036; 84153

== ENCOUNTER 2021-03-24 08:45 | Outpatient (REF) | payer MEDICARE, SELFPAY ==
[2021-03-24 12:08] LABS: Iron 62 mcg/dL (45-160); Percent Iron Saturation 19 % (15-50); Total Iron Binding Capacity 333 mcg/dL (228-428); Unsaturated Iron Binding 271 ug/dL
[2021-03-25 15:41] LABS: Folate 12.8 ng/mL (> or = 4.0); Vitamin B12 243 pg/mL (200-900)
== END 2021-03-24 08:46 | disposition home or self-care (01) ==
LOC: HO.HMGCLDS 08:45
PROVIDERS: PCP Internal Medicine; Visit Provider Internal Medicine
DX: D64.9 Anemia, unspecified (principal)
CPT/HCPCS: 36415; 82607; 82746; 83540

== ENCOUNTER 2021-03-26 09:04 | Outpatient (REF) | payer MEDICARE, SELFPAY ==
--- NOTE | ~2021-03-26 | XR_ITS ---
EXAMINATION: XR BILATERAL KNEES: CLINICAL INFORMATION: Pain COMPARISON: 06/17/2020 TECHNIQUE: Weightbearing AP views of each knee. Lateral and sunrise views of each knee. FINDINGS: Bilateral total knee arthroplasties with patellar resurfacing. Components in the expected positions. No periprosthetic lucency to suggest loosening, or infection. Small bilateral knee joint effusions. Vascular calcifications. XR/XR knee LT 2V IMPRESSION: Normal radiographic appearance of the bilateral total knee arthroplasties.
--- NOTE | ~2021-03-26 | XR_ITS ---
EXAMINATION: XR BILATERAL KNEES: CLINICAL INFORMATION: Pain COMPARISON: 06/17/2020 TECHNIQUE: Weightbearing AP views of each knee. Lateral and sunrise views of each knee. FINDINGS: Bilateral total knee arthroplasties with patellar resurfacing. Components in the expected positions. No periprosthetic lucency to suggest loosening, or infection. Small bilateral knee joint effusions. Vascular calcifications. XR/XR knee RT 2V IMPRESSION: Normal radiographic appearance of the bilateral total knee arthroplasties.
--- NOTE | ~2021-03-26 | XR_ITS ---
EXAMINATION: XR BILATERAL KNEES: CLINICAL INFORMATION: Pain COMPARISON: 06/17/2020 TECHNIQUE: Weightbearing AP views of each knee. Lateral and sunrise views of each knee. FINDINGS: Bilateral total knee arthroplasties with patellar resurfacing. Components in the expected positions. No periprosthetic lucency to suggest loosening, or infection. Small bilateral knee joint effusions. Vascular calcifications. XR/XR knee standing BI IMPRESSION: Normal radiographic appearance of the bilateral total knee arthroplasties.
== END 2021-03-26 09:05 | disposition home or self-care (01) ==
LOC: HO.HOSX 09:04
PROVIDERS: PCP Internal Medicine; Visit Provider Orthopaedic Surgery
DX: M25.561 Pain in right knee (principal); M24.559 Contracture, unspecified hip; S76.119A Strain of unspecified quadriceps muscle, fascia and tendon, initial encounter; Z96.653 Presence of artificial knee joint, bilateral; Z72.0 Tobacco use
CPT/HCPCS: 73560; 73565; 99212

== ENCOUNTER 2021-03-27 | Outpatient (REF) | payer MEDICARE, SELFPAY ==
[2021-04-06 15:04] LABS: FIT Int Ctl YES; FIT1 NEGATIVE (NEGATIVE); FIT2 NEGATIVE (NEGATIVE)
== END 2021-03-27 00:01 | disposition home or self-care (01) ==
LOC: HO.LNP
PROVIDERS: Visit Provider Internal Medicine
DX: D64.9 Anemia, unspecified (principal)
CPT/HCPCS: 82274

== ENCOUNTER 2021-05-13 08:00 | Outpatient (RCR) | payer MEDICARE, SELFPAY ==
--- NOTE | 2021-03-31 08:31 | MHC.PT.EP ---
[facility] [place] Office [place] Office [place] Office [address] [phone] F: [phone] F: [phone] F: [phone] F: [phone] Physical Therapy Plan of Care Date of Evaluation: Date of Surgery: 10/2019 Diagnosis: CONTRACTURE, Rt HIP STRAIN QUADS , H/O MIREYA TKA Assessment: 75 YO MALE REF TO PT WITH Rt HIP AND QUAD STRAIN/ CONTRACTURE x 1 MONTH- HE HAS BEEN GOING TO THE GYM 3 x WK AND IS S/P Rt TKR 10/23/19 AND Lt TKR 06/17/20. OBJECTIVE FINDINGS: (+) Rt JACOBO, DECR FLEXIB Rt HS/ITB/ HIP IR / HIP ER, KNEE EXTEN DEFICITS MIREYA (Rt > Lt), DECR TRUNK AND HIP EXTEN/ INCR TISSUE TENSION AND RESTRICTION IN ANT CHAIN- DECR STRENGTH IN CORE AND PROX Rt > Lt LE. FUNCTIONAL LIMITATIONS INCLUDE (+) UEs COMPENSATION W TRANSFERS, DIFFIC W DESC STAIRS, LIMITED FUNCT SQUAT, INCR ACTIVITY, AND IN/OUT OF VEHICLES. Frequency and Duration: The patient will be seen 2 x WK x 5 WKS Short Term Goals: DECR Pt'S Rt THIGH PAIN INCR Rt ANT KNEE SCAR MOBILITY IN 2 WKS INCR FLEXIBILITY IN Rt HS, HIP FLEXORS (INCR HIP EXT Rt) AND Rt HIP ROTATORS IN 2 WKS Plywood Matcher Goals: Pt INDEP W HEP AND MODIFIED GYM WORKOUTS AND SELF-SX MGMT TECHN IN 5 WKS Pt DEMON PROPER TRANSFERS ALL SURFACES W PROPER LEs USAGE VS UEs COMPENSATION AND WFL TECHN W STAIR MGMT IN 5 WKS LEFT SCORE IMPROVED BY 5 POINTS (AT EVAL 58/80) Treatment Plan: Modalities to reduce pain, spasms and effusion. Manual therapy to restore motion and function. Therapeutic exercise to improve strength and flexibility. Neuromuscular re-education for posture and balance. Therapeutic activities to return to functional activities of daily living. Electronically signed by: Bárbara Mariee,PT Please sign and return to therapist. Thank you for your referral.
--- NOTE | 2021-05-14 08:38 | MHC.PT.DC ---
[facility] [place] Office [place] Office [place] Office [address] Maryann Willson [address] [phone] F: [phone] F: [phone] F: [phone] F: [phone] Physical Therapy Discharge Report Diagnosis: CONTRACTURE, Rt HIP STRAIN QUADS , H/O MIREYA TKA Date of Surgery: 10/2019 Date of Evaluation: 03/31/21 Date of Discharge: 05/14/21 Treatments to Date: 12 Cancellations to Date: 0 No Shows to Date: 0 Discharge Status: Achieved Goals Improved Function Independent with HEP Discharge Summary: Pt achieved all goals and is I with HEP. Pt is going back to the gym. Completed LEFS 56/ Electronically signed by: Nellie Snider PT Please sign and return to therapist. Thank you for your referral.
== END 2021-05-14 08:47 | disposition home or self-care (01) ==
LOC: HO.PTCHIC 08:00
PROVIDERS: PCP Internal Medicine; Visit Provider Orthopaedic Surgery
DX: M24.559 Contracture, unspecified hip (principal); S76.119A Strain of unspecified quadriceps muscle, fascia and tendon, initial encounter; Z96.652 Presence of left artificial knee joint
CPT/HCPCS: 97110; 97140; 97162; 97530

== ENCOUNTER → 2021-06-16 10:41 | Outpatient (BNVA) | payer MEDICARE, SELFPAY | PROVIDERS: Visit Provider Urology | DX: N40.1 Benign prostatic hyperplasia with lower urinary tract symptoms (principal); N13.8 Other obstructive and reflux uropathy; R39.15 Urgency of urination; R39.12 Poor urinary stream | CPT/HCPCS: 51798; 99212 ==

== ENCOUNTER → 2022-05-06 09:04 | Outpatient (BNVA) | payer SELFPAY | PROVIDERS: PCP Internal Medicine; Visit Provider Physician Assistant Medical | DX: Z02.79 Encounter for issue of other medical certificate (principal) ==

== ENCOUNTER → 2022-06-11 08:51 | Outpatient (BNVA) | payer MEDICARE, SELFPAY | PROVIDERS: PCP Internal Medicine; Visit Provider Urology | DX: N40.1 Benign prostatic hyperplasia with lower urinary tract symptoms (principal); R39.15 Urgency of urination; R39.12 Poor urinary stream; N13.8 Other obstructive and reflux uropathy | CPT/HCPCS: 51798; 99212 ==

== ENCOUNTER 2022-07-19 08:09 | Outpatient (RCR) | payer OTHER, SELFPAY | END 2022-09-20 14:33 | disposition home or self-care (01) | LOC: HO.WCC 08:09 | PROVIDERS: PCP Internal Medicine; Visit Provider Physician Assistant | DX: T24.202A Burn of second degree of unspecified site of left lower limb, except ankle and foot, initial encounter (principal); I87.2 Venous insufficiency (chronic) (peripheral); T31.0 Burns involving less than 10% of body surface; I10 Essential (primary) hypertension; E11.9 Type 2 diabetes mellitus without complications; R60.9 Edema, unspecified; Z79.84 Long term (current) use of oral hypoglycemic drugs | CPT/HCPCS: 11042; 11045; 15271; 15275; 16020; 16025; 99212; Q4160 ==

== ENCOUNTER 2023-05-31 06:40 | Outpatient (REF) | payer MEDICARE, OTHER, SELFPAY | END 2023-05-31 06:41 | disposition home or self-care (01) | LOC: HO.HMGCLDS 06:40 | PROVIDERS: PCP Internal Medicine; Visit Provider Urology | DX: Z12.5 Encounter for screening for malignant neoplasm of prostate (principal); N40.1 Benign prostatic hyperplasia with lower urinary tract symptoms; N13.8 Other obstructive and reflux uropathy | CPT/HCPCS: 36415; 84153 ==

== ENCOUNTER 2023-07-04 08:15 | Outpatient (AMB) | payer MEDICARE, SELFPAY ==
--- NOTE | 2023-07-04 08:38 | A.OFFVIS_ITS ---
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 Accompanied by: Self / Same As Patient Allergies morphine [MORPHINE] Adverse Reaction (Severe, Verified 07/04/23 08:57) DROP IN BLOOD PRESSURE, ALMOST FAINTED Medication List - Last Reconciled 07/04/23 by YOSEF Flood acetaminophen 650 mg (2 x 325 mg) PO Q6H PRN 30 days doxycycline hyclate 100 mg PO BID doxycycline hyclate 100 mg PO BID finasteride 5 mg PO DAILY 90 days losartan 100 mg PO DAILY metformin 1,000 mg (2 x 500 mg) PO BID rosuvastatin 20 mg PO BEDTIME silver sulfadiazine 1% 1 appl topical DAILY HPI HPI Comments History of Present Illness Details Giovani is a very pleasant 78 year old male patient of Dr Chairez. He has a past medical history of hyperlipidemia, osteoarthritis of bilateral knees, diverticulosis, arthritis, back pain, anemia, diabetes, sleep apnea, hypercholesteremia, and hypertension. He presents to the office today for follow-up of his lower urinary tract symptoms. In discussion with the patient today reports to be doing and feeling well. 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 Recent PSA results reviewed with the patient today. PSA 06/27--1.1. He reports compliance with fi nasteride 5 mg daily. He denies any bothersome urinary issues or concerns. He does report increased episodes of urinary frequency in the morning however relates this to his consumption of coffee in the morning. He denies urinary urgency, urinary frequency, incontinence, nocturia, hematuria, dysuria, foul smelling urine, changes to urinary stream, flank pain, fever, and or chills. He reports previously being on Flomax for lower urinary tract symptoms however has since stopped as lower urinary tract symptoms have significantly improved. He is happy with his current voiding parameters. He does however report issues with maintaining erections. When asked he reports sexual desire and is able to obtain erections however maintaining erection has been difficult for quite some time. Discussed at length potential causes for erectile dysfunction. In office urinalysis results reviewed with the patient today. PVR 0 mL. PREVIOUS OFFICE NOTE Lower Urinary Tract Symptoms: Twelve month follow-up Doing well with current therapy Can try dropping tamsulosin and remaining on 5 AR Does have background diabetes and may benefit from low-dose tadalafil for prostate Current visit is for further evaluation of, lower urinary tract symptoms, predominate obstructive symptoms. Current treatment includes medication, alpha rosie, tamsulosin, 5-AR. Prostate Symptom Score Moderate (9-19), Bother 3. Symptoms include incomplete emptying, weak stream, nocturia (>2), and are progressing 08/23 , weak stream, nocturia (>2), , and are improving. Results from testing include cystoscopy Trilobar hypertrophy 08/23 large prostate, multiple small diverticula renal/bladder us Yes date 07/04/2019 PVR 200 prostate size 125 PSA 06/23 3.2, 03/25 0.96 Prostate volume 30-50gm. Associated conditions CAD No CVA No diabetes Yes elevated PSA No erectile dysfunction No hematuria No renal insufficiency No urge incontinence No urinary retention No urinary tract infection No psychiatric diagnosis No PFSH Medical History Hyperlipidemia Weak urinary stream Feeling of incomplete bladder emptying Primary osteoarthritis of knees, bilateral Diverticulosis Annual physical exam Arthritis Back pain Anemia Diabetes Sleep apnea Elevated cholesterol HTN (hypertension) Surgical History History of total left hip arthroplasty (~06/2020) History of dental surgery History of total right knee replacement H/O colonoscopy Family History Father Lung cancer Mother No problems noted. Social History Housing: House Are you a primary lpn care manager to a significant other at home: No Do you presently have visiting nurse or other home services: No Patient Tobacco Use Status: Former Tobacco user Tobacco use type: Cigar e-Cigarette/Vaping Use: Never Used Second Hand Smoke Exposure: No service: Yes Current occupational status: retired Cognitive needs: No Hearing needs: No Vision needs: No Review of Systems Eyes Reports no additional complaints ENT Details: Patient reports recently [facility] Card Reports as per HPI Resp Reports as per HPI GI Reports no additional complaints Reports as per HPI Musc Reports as per HPI Neuro Reports no additional complaints Psych Reports no additional complaints Endo Reports as per HPI Raman/Lymph Reports no additional complaints Aller/Immun Reports no additional complaints Physical Exam Const General: cooperative, healthy appearing, comfortable, no acute distress, well developed, alert and awake Nutritional Appearance: overweight Orientation/consciousness: patient oriented x3 Limitations: no limitations HEENT Head: Yes normal to inspection, Yes normocephalic and Yes atraumatic Ears: hearing grossly normal bilaterally Eyes General: appearance normal, both eyes and all related structures Neck Neck: Yes normal visual inspection and Yes trachea midline Chest Chest palpation & inspection: normal inspection of the chest Resp Effort & Inspection: normal respiratory effort and able to speak in complete sentences Cardio Rate: regular rate GI Inspection: Yes normal to inspection General: Yes no CVA tenderness Back/Spine/Pelvis Back: no CVA tenderness Skin General skin exam: no rashes or lesions noted Neuro General: patient oriented x3 Extrem General: Yes normal to inspection Psych Appearance: grossly normal and well kempt Mental Status: mental status grossly normal Speech and movement: Normal speech and movement present and Clear speech present Affect: normal affect Attitude: cooperative Thought process: Normal thought process present Thought content: Normal thought content present Insight: Fair insight present (Psych) Judgement: Fair judgement present (Psych) Results AMB Urinalysis, Automated UA Leukoctes 70 Jayne/uL Last Edit by KYLE Dsouza on 07/04/23 08:47 1+ Rigo Sanchez 07/04/23 08:47 UA Nitrite Last Edit by KYLE Dsouza on 07/04/23 08:47 UA Urobilinogen 0 mg/dL Last Edit by KYLE Dsouza on 07/04/23 08:47 UA Protein 15 mg/dL Last Edit by Rigo Sanchez A on 07/04/23 08:47 UA pH 7.0 Last Edit by Rigo Sanchez A on 07/04/23 08:47 UA Blood 0 Stan/uL Last Edit by Rigo Sanchez A on 07/04/23 08:47 UA Specific [place] 1015 Last Edit by Rigo Sanchez A on 07/04/23 08:4 7 UA Ketone Negative Last Edit by Rigo Sanchez A on 07/04/23 08:47 UA Bilirubin 0 mg/dL Last Edit by Rigo Sanchez A on 07/04/23 08:47 UA Glucose 0 mg/dL Last Edit by Rigo Sanchez A on 07/04/23 08:47 Results Reviewed Results Reviewed: Laboratory Last Values Urine pH (Auto) 7.0 07/04/23 08:44 Specific [place] (Auto) 1015 07/04/23 08:44 Urine Protein (Auto) 15 mg/dL 07/04/23 08:44 Glucose (UA)(Auto) 0 mg/dL 07/04/23 08:44 Urine Ketones (Auto) Negative 07/04/23 08:44 Urine Blood (Auto) 0 Stan/uL 07/04/23 08:44 Urine Bilirubin (Auto) 0 mg/dL 07/04/23 08:44 Urine Urobilinogen (Auto) 0 mg/dL 07/04/23 08:44 Leukocyte Esterase (Auto) 70 Jayne/uL 07/04/23 08:44 Assessment & Plan Assessment & Plan (1) Erectile dysfunction associated with type 2 diabetes mellitus: Code(s): E11.69 - Type 2 diabetes mellitus with other specified complication; N52.1 - Erectile dysfunction due to diseases classified elsewhere (2) BPH w urinary obs/LUTS: Code(s): N40.1 - Benign prostatic hyperplasia with lower urinary tract symptoms; N13.8 - Other obstructive and reflux uropathy Plan In office urinalysis results reviewed with the patient today; as noted above. PVR 0 mL. Recent PSA results reviewed with the patient today; as noted above. Continue finasteride as discussed and prescribed. Start 5 mg of Cialis daily. Discussed at length potential causes of ED. Discussed importance of compliance with CPAP machine for sleep apnea as well as management of diabetes for improvement in ED as well as overall health and well- being. Patient denies any bothersome urinary issues at this time. Patient reports be happy with current voiding parameters. Will obtain PSA in 1 year. Discussed follow-up in 3 months given initiation of Cialis to further assess however patient states he will call if follow-up is needed he would like to stay with annual appointments. Follow-up in 1 year with PVR and lab to be completed prior; or sooner with any issues, concerns, and or questions. Orders: Orders AMB Urinalysis Automated Today Z13.9 - Encounter for screening, unspecified AMB Post Void Residual by ultrasound Today N39.8 - Other specified disorders of urinary system Prostate Specific Antigen 364 Days N13.8 - Other obstructive and reflux uropathy, N40.1 - Benign prostatic hyperplasia with lower urinary tract symptoms Medications: New tadalafil (Cialis) [id number] [facility] [id number] Member [id number] 5 mg PO DAILY 90 days 90 tabs 0RF Refilled finasteride 5 mg PO DAILY 90 days 90 tabs 3RF Patient Instructions: The patient had an opportunity to ask questions regarding the treatment plan. All questions were answered. Physical exam, labs, and imaging were discussed and reviewed in detail. As well as risks, benefits, and discussion of treatment choices. No major barriers to understanding were identified. The patient expressed understanding and agreement with the above treatment plan. The patient was made aware they should contact our office by phone for worsening of their current condition, the appearance of new symptoms, or with any questions or concerns. Compliance is encouraged with any medications and follow up testing that is ordered. It is a privilege to be allowed the opportunity to participate in? your urological care.? Again, if you have any questions or concerns If you have any questions or concerns please do not hesitate to contact me. The office is [phone]. This note is constructed using voice recognition software. While every effort has been made to ensure accuracy desk sergeant errors may have been included. Yours sincerely, YOSEF Flood Coding Level of Care Code Est Pt Level 4 (08964) Diagnoses Erectile dysfunction associated with type 2 diabetes mellitus E11.69; N52.1 BPH w urinary obs/LUTS N40.1; N13.8
== END 2023-07-04 09:08 | disposition home or self-care (01) ==
PROVIDERS: Visit Provider Nurse Practitioner Family
DX: E11.69 Type 2 diabetes mellitus with other specified complication (principal); N52.1 Erectile dysfunction due to diseases classified elsewhere; N40.1 Benign prostatic hyperplasia with lower urinary tract symptoms; N13.8 Other obstructive and reflux uropathy; Z13.9 Encounter for screening, unspecified
CPT/HCPCS: 99214

== ENCOUNTER → 2023-07-04 08:15 | Outpatient (BNVA) | payer MEDICARE, SELFPAY | PROVIDERS: Visit Provider Nurse Practitioner Family | DX: E11.69 Type 2 diabetes mellitus with other specified complication (principal); N52.1 Erectile dysfunction due to diseases classified elsewhere; N40.1 Benign prostatic hyperplasia with lower urinary tract symptoms; N13.8 Other obstructive and reflux uropathy | CPT/HCPCS: 81003; 99212 ==

== ENCOUNTER 2023-10-26 06:33 | Outpatient (REF) | payer MEDICARE, SELFPAY ==
[2023-10-26 11:15] LABS: MANUAL DIFF FLAG NO
[2023-10-26 11:29] LABS: Basophils Percent Auto 0.4 % (0-2); Eosinophils Absolute Auto 0.2 X10*3/uL (0.0-0.4); Eosinophils Percent Auto 2.5 % (0-4); Hematocrit 40.9 % (42.0-52.0); Hemoglobin 13.7 g/dl (14.0-18.0); Imm Gran Abs Auto 0.01 X10*3/uL (0.00-0.03); Imm Gran Pct Auto 0.1 % (0.0-0.4); Lymphocytes Absolute Auto 1.7 X10*3/uL (1.2-4.9); Mean Corpuscular HGB Conc 33.5 g/dl (31.0-36.0); Mean Corpuscular Hemoglobin 29.1 pg (27.0-33.0); Mean Corpuscular Volume 86.8 fL (80.0-98.0); Mean Platelet Volume 9.3 fL (9.4-12.4); Monocytes Absolute Auto 0.7 X10*3/uL (0.1-1.2); Monocytes Percent Auto 9.8 % (2-11); Neutrophils Absolute Auto 4.3 x10*3/uL (2.0-8.3); Neutrophils Percent Auto 63.2 % (45-73); Platelet Count 334 X10*3/uL (160-400); Red Blood Count 4.71 X10*6/uL (4.60-5.80); White Blood Count 6.9 X10*3/uL (4.8-10.8)
[2023-10-26 11:38] LABS: Alanine Aminotransferase 15 U/L (0-40); Albumin Level 4.2 g/dL (3.5-5.0); Alkaline Phosphatase 68 U/L (39-117); Anion Gap 12 (12-20); Aspartate Amino Transferase 16 U/L (5-37); Bilirubin Total 0.6 mg/dL (0.0-1.0); Blood Urea Nitrogen 24 mg/dL (9-16); Calcium 9.4 mg/dL (8.4-10.2); Carbon Dioxide 25 mmol/L (22-29); Chloride 110 mmol/L (96-108); Cholesterol 137 mg/dL (<200); Estimated Glomerular Filt Rate > 60; Glucose Fasting 118 mg/dL (60-99); HDL Cholesterol 44 mg/dL (>40); LDL Cholesterol Calculated 59 mg/dL (<100); Potassium 4.4 mmol/L (3.3-5.1); Sodium 143 mmol/L (135-145); Total Protein 7.5 g/dL (6.5-8.0); Triglycerides 173 mg/dL (<150)
[2023-10-26 11:40] LABS: Estimated Average Glucose 128 mg/dL; Hemoglobin A1c % 6.1 % (<6.0)
[2023-10-26 11:49] LABS: Creatinine Urine 104.67 mg/dL
== END 2023-10-26 06:34 | disposition home or self-care (01) ==
LOC: HO.HMGCLDS 06:33
PROVIDERS: PCP Internal Medicine; Visit Provider Internal Medicine
DX: E11.9 Type 2 diabetes mellitus without complications (principal); E78.5 Hyperlipidemia, unspecified
CPT/HCPCS: 36415; 80053; 80061; 82043; 82570; 83036; 85025

== ENCOUNTER 2023-11-01 10:51 | Outpatient (AMB) | payer MEDICARE, SELFPAY ==
--- NOTE | 2023-11-01 10:54 | A.OFFPC_ITS ---
Vital Signs 11/01/23 10:55 Height 6 ft Weight 228 lb BMI 30.9 BP 138/60 Blood Pressure Location Rt brachial Position Sitting Pulse 54 Pulse Source Pulse Oximeter Pulse Oximetry (%) 98 Oxygen Delivery Method Room Air Intake Visit Reasons: Annual PE Intake Note: Pt is here today for PE. Allergies morphine [MORPHINE] Adverse Reaction (Severe, Verified 11/01/23 10:59) DROP IN BLOOD PRESSURE, ALMOST FAINTED Medication List - Last Reconciled 11/01/23 by Marva Jurado MD acetaminophen 650 mg (2 x 325 mg) PO Q6H PRN 30 days finasteride 5 mg PO DAILY 90 days losartan 100 mg PO DAILY metformin 1,000 mg (2 x 500 mg) PO BID rosuvastatin 20 mg PO BEDTIME tadalafil (Cialis) 5 mg PO DAILY 90 days Tobacco use date assessed: 11/01/23 Fall risk assessment: No Falls in past year Last assessed Fall Risk: 11/01/23 Dental Screening Dental Screen Date: 11/01/23 Did you have a dental visit in the last 12 months?: Yes Did you have a dental problem in the last 6 months where you did not have access to dental care?: No Was dental information given to patient?: Patient has dentist HPI Annual PE 2 HPI Details Pt presents for PE. Pt c/o 6 month RLE stiffness when getting up from a chair and driving for a long time. Patient. denies any pain or weakness in the right lower extremity when walking or climbing the stairs. [facility] Medical History (Updated 11/01/23 @ 11:47 by Marva Jurado MD) Hyperlipidemia Weak urinary stream Feeling of incomplete bladder emptying Primary osteoarthritis of knees, bilateral Diverticulosis Annual physical exam Arthritis Back pain Anemia Diabetes Sleep apnea Elevated cholesterol HTN (hypertension) Surgical History History of total left hip arthroplasty (~06/2020) History of dental surgery History of total right knee replacement H/O colonoscopy Family History Father Lung cancer Mother No problems noted. Social History Housing: House Are you a primary medicare contact specialist to a significant other at home: No Do you presently have visiting nurse or other home services: No Comment: 6 Patient Tobacco Use Status: Former Tobacco user Tobacco use type: Cigar e-Cigarette/Vaping Use: Never Used Second Hand Smoke Exposure: No service: Yes Current occupational status: retired Cognitive needs: No Hearing needs: No Vision needs: No Questionnaire Thrive Questionnaire Date Thrive assessed: 11/26/21 AUDIT C Alcohol Use Questionnaire (AUDIT-C) 1. How often do you have a drink containing alcohol?: Never 3. How often do you have six or more drinks on one occasion?: Never Total Score: 0 Review of Systems Const All systems reviewed & are unremarkable except as noted in HPI and below Reports no additional complaints Eyes Reports no additional complaints ENT Reports no additional complaints Card Reports no additional complaints Resp Reports no additional complaints GI Reports no additional complaints Reports no additional complaints Physical exam (Primary Care) Vital Signs: Last Vital Signs Pulse 54 11/01/23 10:55 BP 138/60 11/01/23 10:55 Pulse Ox 98 11/01/23 10:55 Oxygen Delivery Method Room Air 11/01/23 10:55 BMI result Body Mass Index 30.9 Tobacco/Smoking Status: Tobacco use Status Tobacco use date assessed 11/01/23 11/01/23 11:05 Patient Tobacco Use Status Former Tobacco user 11/01/23 10:54 Tobacco use type Cigar 11/01/23 10:54 e-Cigarette/Vaping Use Never Used 11/01/23 10:54 Thrive Assessment: Date of Thrive Assessment Date Thrive assessed 11/26/21 11/01/23 10:54 Const General: no acute distress HENMT Head: Yes normal to inspection Ears: hearing grossly normal bilaterally Eyes General: appearance normal, both eyes and all related structures Neck Neck: Yes no lymphadenopathy and Yes supple Resp Effort & Inspection: normal respiratory effort Auscultation: clear to auscultation bilaterally Cardio Rhythm: regular rhythm Heart sounds: S1 normal heart sound present and S2 normal heart sound present GI Inspection: Yes normal to inspection Palpation (GI): Soft to palpation Percussion: Yes normal to percussion Auscultation: normal bowel sounds Extrem Other: Diabetic foot exam skin is intact monofilament and vibration sensation intact bilaterally, straight leg rising 90 degrees bilaterally, both knees and hips with a full range of motion, General: Yes no clubbing, cyanosis or edema Assessment and Plan Assessment & Plan (1) Hyperlipidemia: Code(s): E78.5 - Hyperlipidemia, unspecified Plan: Continue statin (2) Diabetes: Comment: [facility] A1[facility] 6.2 11/24, 6.5 -05/27 Code(s): E11.9 - Type 2 diabetes mellitus without complications Plan: A1c is 6.1, ADA diet regular exercise continue metformin discussed with the patient (3) BPH w urinary obs/LUTS: Comment: f/u Dr. Bauman Code(s): N40.1 - Benign prostatic hyperplasia with lower urinary tract symptoms; N13.8 - Other obstructive and reflux uropathy Plan: Follow-up with Urology on finasteride and tadalafil. Patient stopped taking Flomax as recommended by Urology (4) HTN (hypertension): Code(s): I10 - Essential (primary) hypertension Plan: Continue losartan (5) Annual physical exam: Code(s): Z00.00 - Encounter for general adult medical examination without abnormal findings Plan: Well-balanced diet increase physical activity weight loss discussed with the patient follow-up in 6 months with fasting labs before Orders: Orders Hemoglobin A1c 6 Months E11.9 - Type 2 diabetes mellitus without complications, E78.5 - Hyperlipidemia, unspecified, I10 - Essential (primary) hypertension Microalbumin, Random (w Creat) 6 Months E11.9 - Type 2 diabetes mellitus without complications, E78.5 - Hyperlipidemia, unspecified, I10 - Essential (primary) hypertension Comprehensive [place]. Panel Fast 6 Months E11.9 - Type 2 diabetes mellitus without complications, E78.5 - Hyperlipidemia, unspecified, I10 - Essential (primary) hypertension Lipid Panel 6 Months E11.9 - Type 2 diabetes mellitus without complications, E78.5 - Hyperlipidemia, unspecified, I10 - Essential (primary) hypertension Complete Blood Count Auto Diff 6 Months E11.9 - Type 2 diabetes mellitus without complications, E78.5 - Hyperlipidemia, unspecified, I10 - Essential (primary) hypertension Coding Level of Care Code Est Pt Prev Care >65y(72707) Diagnoses Hyperlipidemia E78.5 Diabetes E11.9 BPH w urinary obs/LUTS N40.1; N13.8 HTN (hypertension) I10 Annual physical exam Z00.00
[2023-11-01 10:55] VITALS: BP 138/60; PULSE 54; O2SAT 98; BMI 30.9
== END 2023-11-01 11:54 | disposition home or self-care (01) ==
PROVIDERS: PCP Internal Medicine; Visit Provider Internal Medicine
DX: E78.5 Hyperlipidemia, unspecified (principal); E11.9 Type 2 diabetes mellitus without complications; N40.1 Benign prostatic hyperplasia with lower urinary tract symptoms; N13.8 Other obstructive and reflux uropathy; I10 Essential (primary) hypertension; Z00.00 Encounter for general adult medical examination without abnormal findings
CPT/HCPCS: 99397

== ENCOUNTER → 2024-05-16 08:19 | Outpatient (BNVA) | payer SELFPAY | PROVIDERS: PCP Internal Medicine; Visit Provider Internal Medicine | DX: Z02.79 Encounter for issue of other medical certificate (principal) ==

== ENCOUNTER 2024-07-02 07:01 | Outpatient (REF) | payer MEDICARE, SELFPAY ==
[2024-07-02 10:46] LABS: Prostate Specific Antigen 1.17 ng/mL (<0.05-4.0)
== END 2024-07-02 07:02 | disposition home or self-care (01) ==
LOC: HO.HMGCLDS 07:01
PROVIDERS: PCP Internal Medicine; Visit Provider Nurse Practitioner Family
DX: N40.1 Benign prostatic hyperplasia with lower urinary tract symptoms (principal); N13.8 Other obstructive and reflux uropathy; Z12.5 Encounter for screening for malignant neoplasm of prostate
CPT/HCPCS: 36415; 84153

== ENCOUNTER 2024-07-04 08:25 | Outpatient (AMB) | payer MEDICARE, SELFPAY ==
--- NOTE | 2024-07-04 08:30 | MHC.OFFVIS ---
Intake Visit Reasons: 1y/PSA Intake Note: Patient presents today for follow up on: PSA Current Medicaiton: Finasteride Blood Thinners: None PSA Results: 1.17 [employer] Required: No Accompanied by: Self / Same As Patient Allergies morphine [MORPHINE] Adverse Reaction (Severe, Verified 07/04/24 09:15) DROP IN BLOOD PRESSURE, ALMOST FAINTED Medication List - Last Reconciled 07/04/24 by SUSIE Flood- acetaminophen 650 mg (2 x 325 mg) PO Q6H PRN 30 days finasteride 5 mg PO DAILY 90 days losartan 100 mg PO DAILY metformin 1,000 mg (2 x 500 mg) PO BID rosuvastatin 20 mg PO BEDTIME tadalafil (Cialis) 10 mg PO .PRN PRN 30 days tadalafil (Cialis) 5 mg PO DAILY 90 days HPI Comments Details: Giovani is a very pleasant 79 year old male patient of Dr Chairez. He has a past medical history of hyperlipidemia, osteoarthritis of bilateral knees, diverticulosis, arthritis, back pain, anemia, diabetes, sleep apnea, hypercholesteremia, and hypertension. He presents to the office today for follow-up of his lower urinary tract symptoms. In discussion with the patient today reports to be doing and feeling well. Recent PSA results reviewed with the patient today. PSAs are as follows: 04/23 2.3. 08/23 3.2, 03/25 1.0, 05/28 1.1, 06/28 1.2 He reports compliance with finasteride 5 mg daily. He denies any bothersome urinary issues or concerns. However, he does report increased episodes of urinary frequency in the morning however relates this to his consumption of coffee in the morning and feels he is managing this well independently. He denies incontinence, nocturia, hematuria, dysuria, foul smelling urine, changes to urinary stream, flank pain, fever, and or chills. He reports previously being on Flomax for lower urinary tract symptoms however has since stopped as lower urinary tract symptoms have significantly improved. He is happy with his current voiding parameters. He does continue to report report issues with maintaining erections. He reports despite daily dosing of 5 mg of tadalafil he continues with issues obtaining and maintaining his erections. He reports this has been an issue for many years. We discussed at length potential treatment options for erectile dysfunction. We discussed potential causes for ED as well. When asked he reports sexual desire and is able to obtain erections however maintaining erections are difficult. He does not feel his erections are adequate for penetration. Discussed at length potential causes for erectile dysfunction. In office urinalysis results reviewed with the patient today. PREVIOUS OFFICE NOTE Lower Urinary Tract Symptoms: Twelve month follow-up Doing well with current therapy Can try dropping tamsulosin and remaining on 5 AR Does have background diabetes and may benefit from low-dose tadalafil for prostate Current visit is for further evaluation of, lower urinary tract symptoms, predominate obstructive symptoms. Current treatment includes medication, alpha rosie, tamsulosin, 5-AR. Prostate Symptom Score Moderate (9-19), Bother 3. Symptoms include incomplete emptying, weak stream, nocturia (>2), and are progressing 08/23 , weak stream, nocturia (>2), , and are improving. Results from testing include cystoscopy Trilobar hypertrophy 08/23 large prostate, multiple small diverticula renal/bladder us Yes date 07/04/2019 PVR 200 prostate size 125 PSA 06/23 3.2, 03/25 0.96 Prostate volume 30-50gm. Associated conditions CAD No CVA No diabetes Yes elevated PSA No erectile dysfunction No hematuria No renal insufficiency No urge incontinence No urinary retention No urinary tract infection No psychiatric diagnosis No PFSH Medical History Hyperlipidemia Weak urinary stream Feeling of incomplete bladder emptying Primary osteoarthritis of knees, bilateral Diverticulosis Annual physical exam Arthritis Back pain Anemia Diabetes Sleep apnea Elevated cholesterol HTN (hypertension) Surgical History History of total left hip arthroplasty (~06/2020) History of dental surgery History of total right knee replacement H/O colonoscopy Family History Father Lung cancer Mother No problems noted. Social History Housing: House Are you a primary care specialist to a significant other at home: No Do you presently have visiting nurse or other home services: No Comment: 6 Patient Tobacco Use Status: Former Tobacco user Tobacco use type: Cigar e-Cigarette/Vaping Use: Never Used Second Hand Smoke Exposure: No service: Yes Current occupational status: retired Cognitive needs: No Hearing needs: No Vision needs: No Review of Systems Eyes Reports no additional complaints ENT Details: Patient reports recently obtaining [facility] Reports as per HPI Resp Reports as per HPI GI Reports no additional complaints Reports as per HPI Musc Reports as per HPI Neuro Reports no additional complaints Psych Reports no additional complaints Endo Reports as per HPI Raman/Lymph Reports no additional complaints Aller/Immun Reports no additional complaints Physical Exam Const General: cooperative, healthy appearing, comfortable, no acute distress, well developed, alert and awake Nutritional Appearance: overweight Orientation/consciousness: patient oriented x3 Limitations: no limitations HEENT Head: Yes normal to inspection, Yes normocephalic and Yes atraumatic Ears: hearing grossly normal bilaterally Eyes General: appearance normal, both eyes and all related structures Neck Neck: Yes normal visual inspection and Yes trachea midline Chest Chest palpation & inspection: normal inspection of the chest Resp Effort & Inspection: normal respiratory effort and able to speak in complete sentences Cardio Rate: regular rate GI Inspection: Yes normal to inspection General: Yes no CVA tenderness Back/Spine/Pelvis Back: no CVA tenderness Skin General skin exam: no rashes or lesions noted Neuro General: patient oriented x3 Extrem General: Yes normal to inspection Psych Appearance: grossly normal and well kempt Mental Status: mental status grossly normal Speech and movement: Normal speech and movement present and Clear speech present Affect: normal affect Attitude: cooperative Thought process: Normal thought process present Thought content: Normal thought content present Insight: Fair insight present (Psych) Judgement: Fair judgement present (Psych) Results AMB Urinalysis, Automated UA Leukoctes 0 Jayne/uL Last Edit by [employer] Daysi on 07/04/24 08:53 UA Nitrite Last Edit by Cariloopliliana Tavarez on 07/04/24 08:53 UA Urobilinogen 0.2 mg/dL Last Edit by Cariloopliliana Tavarez on 07/04/24 08:53 UA Protein 15 mg/dL Last Edit by [employer] Daysi on 07/04/24 08:53 UA pH 6.0 Last Edit by [email or web address] on 07/04/24 08:53 UA Blood 0 Stan/uL Last Edit by Drake Tavarez on 07/04/24 08:53 UA Specific Reeders 1.015 Last Edit by Drake Tavarez on 07/04/24 08:53 UA Ketone Last Edit by Drake Tavarez on 07/04/24 08:53 UA Bilirubin 0 mg/dL Last Edit by Drake Tavarez on 07/04/24 08:53 UA Glucose 100 mg/dL Last Edit by Drake Tavarez on 07/04/24 08:53 Results Reviewed Results Reviewed: Laboratory Last Values Urine pH (Auto) 6.0 07/04/24 08:52 Specific Reeders (Auto) 1.015 07/04/24 08:52 Urine Protein (Auto) 15 mg/dL 07/04/24 08:52 Glucose (UA)(Auto) 100 mg/dL 07/04/24 08:52 Urine Blood (Auto) 0 Stan/uL 07/04/24 08:52 Urine Bilirubin (Auto) 0 mg/dL 07/04/24 08:52 Urine Urobilinogen (Auto) 0.2 mg/dL 07/04/24 08:52 Leukocyte Esterase (Auto) 0 Jayne/uL 07/04/24 08:52 Assessment & Plan Assessment & Plan (1) Erectile dysfunction associated with type 2 diabetes mellitus: Code(s): E11.69 - Type 2 diabetes mellitus with other specified complication; N52.1 - Erectile dysfunction due to diseases classified elsewhere Category: Medical (2) Urinary urgency: Code(s): R39.15 - Urgency of urination Category: Medical (3) Weak urinary stream: Code(s): R39.12 - Poor urinary stream Category: Medical (4) BPH w urinary obs/LUTS: Comment: f/u Dr. Bauman Code(s): N40.1 - Benign prostatic hyperplasia with lower urinary tract symptoms; N13.8 - Other obstructive and reflux uropathy Category: Medical Plan In office urinalysis results reviewed with the patient today; as noted above. Recent PSA results reviewed with the patient today; as noted above. Continue finasteride as discussed and prescribed; refill provided Continue 5 mg of Cialis daily; refill provided Prescription provided for p.r.n. dosing 1 hour prior to sexual activity Discussed at length potential causes of ED. We discussed further treatment options for erectile dysfunction. Discussed importance of compliance with CPAP machine for sleep apnea as well as management of diabetes for improvement in ED as well as overall health and well-being. Patient denies any bothersome urinary issues at this time. Patient reports be happy with current voiding parameters. Will obtain PSA in 1 year. Follow-up in 1 year with PSA and PVR; or sooner with any issues, concerns, and or questions. Orders: Orders AMB Urinalysis Automated Today Z13.9 - Encounter for screening, unspecified Prostate Specific Antigen 1 Year N13.8 - Other obstructive and reflux uropathy, N40.1 - Benign prostatic hyperplasia with lower urinary tract symptoms Medications: New tadalafil (Cialis) Take 1-2 tablets administer approximately 30-60min before sexual activity; do not use more than 1 dose per 24hrs. Do not exceed more than 2-3 times per week. [facility] [address] [id number] 10 mg PO .PRN 30 days PRN 20 tabs 4RF sexual activity tadalafil (Cialis) Take 1-2 tablets administer approximately 30-60min before sexual activity; do not use more than 1 dose per 24hrs. Do not exceed more than 2-3 times per week. [facility] [address] [id number] 10 mg PO .PRN 30 days PRN 20 tabs 4RF sexual activity tadalafil (Cialis) Take 1-2 tablets administer approximately 30-60min before sexual activity; do not use more than 1 dose per 24hrs. Do not exceed more than 2-3 times per week. [facility] [address] [id number] 10 mg PO .PRN 30 days PRN 20 tabs 4RF sexual activity Refilled tadalafil (Cialis) [id number] [facility] [id number] Member [id number] 5 mg PO DAILY 90 days 90 tabs 3RF finasteride 5 mg PO DAILY 90 days 90 tabs 3RF finasteride 5 mg PO DAILY 90 days 90 tabs 3RF tadalafil (Cialis) [id number] [facility] [id number] Member [id number] 5 mg PO DAILY 90 days 90 tabs 3RF finasteride 5 mg PO DAILY 90 days 90 tabs 3RF tadalafil (Cialis) [id number] [facility] [id number] Member [id number] 5 mg PO DAILY 90 days 90 tabs 3RF Coding Level of Care Code Est Pt Level 4 (94041) Complex EM visit Add On [id number] Diagnoses Erectile dysfunction associated with type 2 diabetes mellitus E11.69; N52.1 Urinary urgency R39.15 Weak urinary stream R39.12 BPH w urinary obs/LUTS N40.1; N13.8
== END 2024-07-04 09:12 | disposition home or self-care (01) ==
LOC: HO.HUSH 08:26
PROVIDERS: PCP Internal Medicine; Visit Provider Nurse Practitioner Family
DX: E11.69 Type 2 diabetes mellitus with other specified complication (principal); N52.1 Erectile dysfunction due to diseases classified elsewhere; R39.15 Urgency of urination; R39.12 Poor urinary stream; N40.1 Benign prostatic hyperplasia with lower urinary tract symptoms; N13.8 Other obstructive and reflux uropathy; Z13.9 Encounter for screening, unspecified
CPT/HCPCS: 99214; G2211

== ENCOUNTER → 2024-07-04 08:25 | Outpatient (BNVA) | payer MEDICARE, SELFPAY | PROVIDERS: PCP Internal Medicine; Visit Provider Nurse Practitioner Family | DX: E11.69 Type 2 diabetes mellitus with other specified complication (principal); N52.1 Erectile dysfunction due to diseases classified elsewhere; N40.1 Benign prostatic hyperplasia with lower urinary tract symptoms; R39.15 Urgency of urination; R39.12 Poor urinary stream; N13.8 Other obstructive and reflux uropathy; Z79.899 Other long term (current) drug therapy | CPT/HCPCS: 81003; 99212 ==